=== PATIENT | male | born 1935 | race Caucasian/White ===

== ENCOUNTER 2022-04-09 08:55 | Inpatient (IN) | payer MEDICARE, MEDICAID ==
[2022-04-09] VITALS (40 sets, daily range): BP systolic 59–134; BP diastolic 43–83
[~2022-04-09] VITALS: Ht 165.1 cm; Wt 53.1 kg
[~2022-04-09 08:55] MED LIST: BACI500P7; CEPH-569; EZET10TA13; GLYB5TAB4; METF1000; SIMV40TA2; SITA100T11; TERA5CAP4
[2022-04-09] MEDS ORDERED: SODIUM CHLORIDE 0.9% 1000ML BAG (SEPSIS BOLUS) IV ONE ×2 (09:30)
[2022-04-09] MEDS ORDERED: PIPERACILLIN/TAZ 3.375G PREMIX 50 ML IV ONE ×2 (09:30)
[2022-04-09] MEDS ORDERED: MORPHINE SULFATE 2 MG/ML CPJ (NOT FOR IM USE) IV ONE (09:30)
[2022-04-09] MEDS ORDERED: ONDANSETRON HCL 4MG/2ML INJ IV ONE (09:30)
[2022-04-09] MEDS ORDERED: VANCOMYCIN 1G PREMIX 200 ML IV ONE ×2 (09:30)
[2022-04-09 10:04] LABS: EOSINOPHILS % 0.5 % (0.0-5.0); HEMATOCRIT. 38.8 % (42.0-52.0); HEMOGLOBIN. 11.9 g/dL (14.0-18.0); LYMPHOCYTES % 8.2 % (20.0-50.0); MEAN CORPUSCULAR HEMOGLOBIN 26.4 pg (28.0-32.0); MEAN CORPUSCULAR VOLUME 86.5 fL (80.0-94.0); MEAN PLATELET VOLUME 8.7 fl (7.4-10.4); MONOCYTES % 2.4 % (2.0-8.0); NEUTROPHILS % 88.9 % (40.0-76.0); PLATELET 230 x1000/uL (130-400); RED BLOOD CELL COUNT 4.49 mill/uL (4.7-6.1); RED CELL DISTRIBUTION WIDTH 17.4 % (11.6-14.6)
[2022-04-09 10:10] LABS: CHLORIDE 109 mEq/L (98-107)
[2022-04-09 10:11] LABS: INR 1.2; PARTIAL THROMBOPLASTIN TIME < 21.0 sec (23.4-31.0)
[2022-04-09] MEDS ORDERED: NOREPINEPHRINE 8 MG in DEXT 5% WATER 242 ML IV STA (10:47)
[2022-04-09] MEDS ORDERED: KCL 20MEQ/100ML PREMIX 100 ML IV ONE (11:00)
[2022-04-09] MEDS ORDERED: NOREPINEPHRINE 8MG/250ML PMX 250 ML IV ONE (11:00)
[2022-04-09] MEDS ORDERED: NOREPINEPHRINE 8MG/250ML PMX 250 ML IV NR ×2 (12:15)
[2022-04-09] MEDS ORDERED: ETOMIDATE 2MG/ML 10ML VIAL IV ONE (12:45)
[2022-04-09] MEDS ORDERED: MIDAZOLAM HCL 2 MG/2 ML VIAL ONE (12:45)
[2022-04-09] MEDS ORDERED: SUCCINYLCHOLINE CHLORIDE 200MG/10ML IV ONE (12:46)
[2022-04-09] MEDS ORDERED: ROCURONIUM BROMIDE 10MG/ML VIAL 5ML IV ONE (12:58)
[2022-04-09] MEDS ORDERED: EPHEDRINE SULFATE 50MG/ML VIAL ONE (13:20)
[2022-04-09] MEDS ORDERED: CEFAZOLIN SODIUM 1000MG/VIAL ONE (13:20)
[2022-04-09] MEDS ORDERED: LIDOCAINE HCL 1% 20ML VIAL (Pyxis) INJ ONE (13:20)
[2022-04-09] MEDS ORDERED: ALBUMIN HUMAN 12.5G/250ML (5%) IV ONE ×2 (13:46→22:12)
[2022-04-09] MEDS ORDERED: PHENYLEPHRINE HCL 10 MG/ML 1ML (IV VIAL) IV ONE ×4 (13:50→15:56)
[2022-04-09] MEDS ORDERED: KCL 10MEQ/50ML PREMIX 50 ML IV NR ×2 (14:00→20:00)
[2022-04-09] MEDS ORDERED: METHYLENE BLUE 50 MG/10 ML AMP IV ONE (14:08)
[2022-04-09] MEDS ORDERED: ACETAMINOPHEN 650MG/20.3ML UDC NG PRN (14:45)
[2022-04-09] MEDS ORDERED: BLOOD SUGAR DIAGNOSTIC STRIP TEST SCH (16:30)
[2022-04-09] MEDS ORDERED: NOREPINEPHRINE 32 MG in DEXT 5% WATER 218 ML IV PRN (17:00)
[2022-04-09 17:35] LABS: BG BASE EXCESS -10.4 mmol/L (-2.0-2.0); BG CARBOXYHEMOGLOBIN 0.4 % (0.5-1.5); BG DEOXYHEMOGLOBIN 0.6 % (0.0-5.0); BG FRACTION INSPIRED OXYGEN 100; BG HCO3 ACT 16.8 mmol/L (22.0-26.0); BG METHEMOGLOBIN 0.2 % (0.0-1.5); BG OXYGEN SATURATION 99.4 % (92.0-98.5); BG OXYHEMOGLOBIN 98.8 % (94.0-97.0); BG PCO2 42.2 mmHg (35.0-45.0); BG PH 7.218 (7.350-7.450); BG PO2 414.5 mmHg (75.0-100.0); BG SAMPLE SITE LH; BG TOTAL HEMOGLOBIN 11.6 g/dL (12.0-18.0); BG TOTAL RESPIRATORY RATE 14 b/min; BG VENT MODE VENT - AC
[2022-04-09] MEDS: NOREPINEPHRINE 32 MG in DEXT 5% WATER 218 ML IV PRN (18:01)
[2022-04-09] MEDS: INSULIN LISPRO 100 UNITS/ML SUBCUT SCH ×2 (18:13→21:45)
[2022-04-09] MEDS ORDERED: FENTANYL CITRATE/PF 50MCG/ML 2ML VIAL IV PRN (18:15)
[2022-04-09] MEDS ORDERED: DEXT 5%/0.45% NACL 1000ML 1,000 ML IV SCH (18:30)
[2022-04-09] MEDS ORDERED: SODIUM CHLORIDE 0.9% 1,000 ML IV NR (18:30)
[2022-04-09] MEDS ORDERED: FLUCONAZOLE 200 MG/100ML BAG 200 MG in BAG 1 EACH IV SCH (18:45)
[2022-04-09] MEDS: PHENYLEPHRINE 100 MG in DEXT 5% WATER 240 ML IV PRN (20:03)
[2022-04-09] MEDS: DEXT 5%/0.45% NACL KCL 20MEQ/L 1,000 ML IV SCH (20:09)
[2022-04-09] MEDS: IPRATROPIUM/ALBUTEROL 0.5-3(2.5)MG/3ML NEB HHN SCH (20:38)
[2022-04-09] MEDS: FLUCONAZOLE 200 MG/100ML BAG 100 ML IV SCH (20:44)
[2022-04-09 21:14] LABS: BASOPHILS % 0.3 % (0.0-2.0); EOSINOPHILS % 0.3 % (0.0-5.0); HEMATOCRIT. 38.7 % (42.0-52.0); HEMOGLOBIN. 12.1 g/dL (14.0-18.0); LYMPHOCYTES % 9.5 % (20.0-50.0); MEAN CORPUSCULAR HEMOGLOBIN 27.4 pg (28.0-32.0); MEAN CORPUSCULAR VOLUME 87.8 fL (80.0-94.0); MEAN PLATELET VOLUME 8.5 fl (7.4-10.4); MONOCYTES % 6.7 % (2.0-8.0); NEUTROPHILS % 83.2 % (40.0-76.0); PLATELET 132 x1000/uL (130-400); RED BLOOD CELL COUNT 4.41 mill/uL (4.7-6.1); RED CELL DISTRIBUTION WIDTH 16.5 % (11.6-14.6)
[2022-04-09] MEDS: FAMOTIDINE 20MG/2ML VIAL IV SCH (21:44)
[2022-04-09] MEDS: PIPERACILLIN/TAZOBACTAM 3.375 G in DEXTROSE 5% WATER 50 ML IV SCH (21:44)
[2022-04-09] MEDS ORDERED: SODIUM CHLORIDE 0.9% 500 ML IV ONE (22:00)
[2022-04-10] VITALS (105 sets, daily range): BP systolic 41–190; BP diastolic 13–131
[2022-04-10] MEDS: BLOOD SUGAR DIAGNOSTIC STRIP TEST SCH ×5 (00:07→23:45)
[2022-04-10 01:35] LABS: BG BASE EXCESS -11.5 mmol/L (-2.0-2.0); BG CARBOXYHEMOGLOBIN 0.6 % (0.5-1.5); BG DEOXYHEMOGLOBIN 1.3 % (0.0-5.0); BG FRACTION INSPIRED OXYGEN 40; BG HCO3 ACT 15.1 mmol/L (22.0-26.0); BG METHEMOGLOBIN 0.1 % (0.0-1.5); BG OXYGEN SATURATION 98.7 % (92.0-98.5); BG PCO2 36.4 mmHg (35.0-45.0); BG PH 7.236 (7.350-7.450); BG SAMPLE SITE RIGHT RADIAL; BG TOTAL HEMOGLOBIN 11.4 g/dL (12.0-18.0); BG VENT MODE VENT - AC
[2022-04-10] MEDS: NOREPINEPHRINE 32 MG in DEXT 5% WATER 218 ML IV PRN ×4 (01:54→23:13)
[2022-04-10] MEDS: IPRATROPIUM/ALBUTEROL 0.5-3(2.5)MG/3ML NEB HHN SCH ×4 (02:08→19:58)
[2022-04-10] MEDS: PROPOFOL 10MG/ML 100ML 100 ML IV PRN (03:34)
[2022-04-10] MEDS: VASOPRESSIN 20 UNIT in SODIUM CHLORIDE 0.9% 99 ML IV PRN ×2 (04:01→12:47)
[2022-04-10] MEDS: DEXT 5%/0.45% NACL KCL 20MEQ/L 1,000 ML IV SCH ×3 (04:09→21:12)
[2022-04-10 05:21] LABS: BASOPHILS % 0.2 % (0.0-2.0); EOSINOPHILS % 0.8 % (0.0-5.0); HEMATOCRIT. 33.3 % (42.0-52.0); HEMOGLOBIN. 10.6 g/dL (14.0-18.0); LYMPHOCYTES % 10.7 % (20.0-50.0); MEAN CORPUSCULAR VOLUME 88.3 fL (80.0-94.0); MONOCYTES % 4.7 % (2.0-8.0); NEUTROPHILS % 83.6 % (40.0-76.0); PLATELET 104 x1000/uL (130-400); RED BLOOD CELL COUNT 3.77 mill/uL (4.7-6.1)
[2022-04-10] MEDS: PIPERACILLIN/TAZOBACTAM 3.375 G in DEXTROSE 5% WATER 50 ML IV SCH ×3 (05:50→21:12)
[2022-04-10] MEDS: INSULIN LISPRO 100 UNITS/ML SUBCUT SCH ×4 (05:54→23:50)
[2022-04-10] MEDS: PHENYLEPHRINE 100 MG in DEXT 5% WATER 240 ML IV PRN ×2 (07:06→17:34)
[2022-04-10] MEDS ORDERED: LIDOCAINE HCL 1% 10 MG/ML 10ML VIAL ONE (07:51)
[2022-04-10] MEDS ORDERED: FENTANYL CITRATE/PF 2,500 MCG in SODIUM CHLORIDE 0.9% 250 ML IV PRN (20:45)
[2022-04-10] MEDS: FLUCONAZOLE 200 MG/100ML BAG 100 ML IV SCH (21:12)
[2022-04-10] MEDS: FAMOTIDINE 20MG/2ML VIAL IV SCH (21:12)
[2022-04-10] MEDS: FENTANYL CITRATE/PF 2,500 MCG in SODIUM CHLORIDE 0.9% 200 ML IV PRN (21:32)
[2022-04-11] VITALS (81 sets, daily range): BP systolic 51–143; BP diastolic 29–71
[2022-04-11] MEDS: IPRATROPIUM/ALBUTEROL 0.5-3(2.5)MG/3ML NEB HHN SCH ×4 (02:09→19:57)
[2022-04-11] MEDS: PHENYLEPHRINE 100 MG in DEXT 5% WATER 240 ML IV PRN ×3 (02:41→21:42)
[2022-04-11] MEDS: DEXT 5%/0.45% NACL KCL 20MEQ/L 1,000 ML IV SCH ×3 (04:00→20:00)
[2022-04-11] MEDS: BLOOD SUGAR DIAGNOSTIC STRIP TEST SCH ×3 (06:22→17:54)
[2022-04-11] MEDS: PIPERACILLIN/TAZOBACTAM 3.375 G in DEXTROSE 5% WATER 50 ML IV SCH ×3 (06:27→21:42)
[2022-04-11] MEDS: INSULIN LISPRO 100 UNITS/ML SUBCUT SCH ×3 (06:29→18:07)
[2022-04-11] MEDS: PROPOFOL 10MG/ML 100ML 100 ML IV PRN (06:58)
[2022-04-11] MEDS ORDERED: PROPOFOL 10MG/ML 100ML 100 ML IV PRN (07:00)
[2022-04-11] MEDS: NOREPINEPHRINE 32 MG in DEXT 5% WATER 218 ML IV PRN ×2 (12:13→21:41)
[2022-04-11 13:00] LABS: HEMATOCRIT. 30.5 % (42.0-52.0); HEMOGLOBIN. 9.7 g/dL (14.0-18.0); MEAN CORPUSCULAR HEMOGLOBIN 28.1 pg (28.0-32.0); MEAN CORPUSCULAR VOLUME 88.6 fL (80.0-94.0); MEAN PLATELET VOLUME 10.2 fl (7.4-10.4); RED BLOOD CELL COUNT 3.44 mill/uL (4.7-6.1); RED CELL DISTRIBUTION WIDTH 17.5 % (11.6-14.6)
[2022-04-11 13:04] LABS: BG BASE EXCESS -12.9 mmol/L (-2.0-2.0); BG CARBOXYHEMOGLOBIN 0.3 % (0.5-1.5); BG DEOXYHEMOGLOBIN 1.7 % (0.0-5.0); BG FRACTION INSPIRED OXYGEN 30; BG METHEMOGLOBIN 0.3 % (0.0-1.5); BG OXYGEN SATURATION 98.3 % (92.0-98.5); BG OXYHEMOGLOBIN 97.7 % (94.0-97.0); BG PCO2 30.2 mmHg (35.0-45.0); BG PH 7.253 (7.350-7.450); BG PO2 144.1 mmHg (75.0-100.0); BG SAMPLE SITE LEFT BRACHIAL; BG TOTAL HEMOGLOBIN 10.3 g/dL (12.0-18.0); BG VENT MODE VENT - AC
[2022-04-11 13:11] LABS: PLATELET 46 x1000/uL (130-400)
[2022-04-11 13:29] LABS: PLATELET ESTIMATE MARKEDLY DECREASED
[2022-04-11 13:40] LABS: CHLORIDE 108 mEq/L (98-107); PHOSPHORUS 3.8 mg/dL (2.5-4.9)
[2022-04-11] MEDS ORDERED: FUROSEMIDE 20MG/2ML VIAL IVP NR (20:00)
[2022-04-11] MEDS: FAMOTIDINE 20MG/2ML VIAL IV SCH (21:40)
[2022-04-11] MEDS: FLUCONAZOLE 200 MG/100ML BAG 100 ML IV SCH (21:42)
[2022-04-12] VITALS (94 sets, daily range): BP systolic 69–158; BP diastolic 37–86
[2022-04-12] MEDS: IPRATROPIUM/ALBUTEROL 0.5-3(2.5)MG/3ML NEB HHN SCH ×4 (00:17→20:06)
[2022-04-12] MEDS: FENTANYL CITRATE/PF 2,500 MCG in SODIUM CHLORIDE 0.9% 200 ML IV PRN (00:52)
[2022-04-12] MEDS: BLOOD SUGAR DIAGNOSTIC STRIP TEST SCH ×5 (00:58→23:57)
[2022-04-12] MEDS: INSULIN LISPRO 100 UNITS/ML SUBCUT SCH ×5 (01:06→23:56)
[2022-04-12] MEDS: DEXT 5%/0.45% NACL KCL 20MEQ/L 1,000 ML IV SCH (04:31)
[2022-04-12] MEDS: PIPERACILLIN/TAZOBACTAM 3.375 G in DEXTROSE 5% WATER 50 ML IV SCH ×2 (05:40→14:11)
[2022-04-12] MEDS: NOREPINEPHRINE 32 MG in DEXT 5% WATER 218 ML IV PRN ×2 (09:00→20:05)
[2022-04-12 10:29] LABS: BG CARBOXYHEMOGLOBIN 0.3 % (0.5-1.5); BG DEOXYHEMOGLOBIN 16.5 % (0.0-5.0); BG HCO3 ACT 14.7 mmol/L (22.0-26.0); BG METHEMOGLOBIN 0.6 % (0.0-1.5); BG OXYGEN SATURATION 83.4 % (92.0-98.5); BG OXYHEMOGLOBIN 82.6 % (94.0-97.0); BG PCO2 36.7 mmHg (35.0-45.0); BG PH 7.221 (7.350-7.450); BG PO2 48.8 mmHg (75.0-100.0); BG SAMPLE SITE RIGHT RADIAL; BG TOTAL HEMOGLOBIN 9.6 g/dL (12.0-18.0); BG VENT MODE VENT - AC
[2022-04-12 11:17] LABS: BG CARBOXYHEMOGLOBIN 0.5 % (0.5-1.5); BG DEOXYHEMOGLOBIN 1.4 % (0.0-5.0); BG FRACTION INSPIRED OXYGEN 30; BG HCO3 ACT 13.9 mmol/L (22.0-26.0); BG METHEMOGLOBIN 0.2 % (0.0-1.5); BG OXYGEN SATURATION 98.6 % (92.0-98.5); BG OXYHEMOGLOBIN 97.9 % (94.0-97.0); BG PCO2 31.4 mmHg (35.0-45.0); BG PH 7.263 (7.350-7.450); BG PO2 119.1 mmHg (75.0-100.0); BG SAMPLE SITE LEFT RADIAL; BG TOTAL HEMOGLOBIN 9.5 g/dL (12.0-18.0); BG VENT MODE VENT - AC
[2022-04-12] MEDS: PHENYLEPHRINE 100 MG in DEXT 5% WATER 240 ML IV PRN ×2 (11:29→20:05)
[2022-04-12] MEDS: SODIUM BICARBONATE 150 MEQ in DEXTROSE 5% WATER 1,000 ML IV SCH (13:20)
[2022-04-12 14:26] LABS: CHLORIDE 106 mEq/L (98-107); HEMATOCRIT. 28.3 % (42.0-52.0); HEMOGLOBIN. 8.8 g/dL (14.0-18.0); MEAN CORPUSCULAR HEMOGLOBIN 26.9 pg (28.0-32.0); MEAN CORPUSCULAR VOLUME 86.2 fL (80.0-94.0); MEAN PLATELET VOLUME 10.2 fl (7.4-10.4); RED BLOOD CELL COUNT 3.28 mill/uL (4.7-6.1); RED CELL DISTRIBUTION WIDTH 17.3 % (11.6-14.6)
[2022-04-12 15:20] LABS: PLATELET ESTIMATE MARKEDLY DECREASED
[2022-04-12 15:21] LABS: PLATELET 27 x1000/uL (130-400)
[2022-04-12] MEDS: FAMOTIDINE 20MG/2ML VIAL IV SCH (20:03)
[2022-04-12] MEDS: FLUCONAZOLE 200 MG/100ML BAG 100 ML IV SCH (20:03)
[2022-04-12] MEDS: MEROPENEM 500 MG in SODIUM CHLORIDE 0.9% 50 ML IV SCH (20:04)
[2022-04-13] VITALS (99 sets, daily range): BP systolic 62–154; BP diastolic 23–93
[2022-04-13] MEDS: IPRATROPIUM/ALBUTEROL 0.5-3(2.5)MG/3ML NEB HHN SCH ×4 (01:47→19:54)
[2022-04-13] MEDS: SODIUM BICARBONATE 150 MEQ in DEXTROSE 5% WATER 1,000 ML IV SCH ×2 (05:03→16:00)
[2022-04-13] MEDS: BLOOD SUGAR DIAGNOSTIC STRIP TEST SCH ×4 (05:03→23:49)
[2022-04-13] MEDS: INSULIN LISPRO 100 UNITS/ML SUBCUT SCH ×4 (05:05→23:49)
[2022-04-13 06:04] LABS: HEMATOCRIT. 23.2 % (42.0-52.0); HEMOGLOBIN. 7.6 g/dL (14.0-18.0); MEAN CORPUSCULAR HEMOGLOBIN 27.4 pg (28.0-32.0); MEAN CORPUSCULAR VOLUME 83.4 fL (80.0-94.0); MEAN PLATELET VOLUME 8.9 fl (7.4-10.4); RED BLOOD CELL COUNT 2.78 mill/uL (4.7-6.1); RED CELL DISTRIBUTION WIDTH 16.9 % (11.6-14.6)
[2022-04-13 06:16] LABS: PLATELET 42 x1000/uL (130-400)
[2022-04-13 07:46] LABS: NUCLEATED RED BLOOD CELLS 4 /100 WBC
[2022-04-13 07:47] LABS: PLATELET ESTIMATE MARKEDLY DECREASED
[2022-04-13] MEDS: PHENYLEPHRINE 100 MG in DEXT 5% WATER 240 ML IV PRN ×2 (09:24→19:42)
[2022-04-13] MEDS: MEROPENEM 500 MG in SODIUM CHLORIDE 0.9% 50 ML IV SCH ×2 (09:58→21:22)
[2022-04-13 11:09] LABS: CLARITY URINE TURBID (CLEAR); COLOR URINE DARK YELLOW (YELLOW); KETONES URINE NEGATIVE (NEGATIVE); LEUKOCYTE ESTERASE URINE 2+ (NEGATIVE); NITRITE URINE NEGATIVE (NEGATIVE); OCCULT BLOOD URINE 3+ (NEGATIVE); PROTEIN URINE 1+ (NEGATIVE); SPECIFIC GRAVITY URINE 1.009 (1.005-1.030); UROBILINOGEN URINE 0.2 E.U./dL (0.2-1.0)
[2022-04-13 11:59] LABS: BG BASE EXCESS -7.4 mmol/L (-2.0-2.0); BG CARBOXYHEMOGLOBIN 1.1 % (0.5-1.5); BG DEOXYHEMOGLOBIN 1.3 % (0.0-5.0); BG FRACTION INSPIRED OXYGEN 30; BG HCO3 ACT 16.3 mmol/L (22.0-26.0); BG METHEMOGLOBIN 0.1 % (0.0-1.5); BG OXYGEN SATURATION 98.7 % (92.0-98.5); BG OXYHEMOGLOBIN 97.5 % (94.0-97.0); BG PCO2 26.7 mmHg (35.0-45.0); BG PH 7.403 (7.350-7.450); BG PO2 116.7 mmHg (75.0-100.0); BG SAMPLE SITE RIGHT RADIAL; BG TOTAL HEMOGLOBIN 8.6 g/dL (12.0-18.0); BG VENT MODE VENT - AC
[2022-04-13] MEDS: PROPOFOL 10MG/ML 100ML 100 ML IV PRN (16:02)
[2022-04-13] MEDS: FAMOTIDINE 20MG/2ML VIAL IV SCH (20:46)
[2022-04-13] MEDS: FLUCONAZOLE 200 MG/100ML BAG 100 ML IV SCH (20:46)
[2022-04-14] VITALS (95 sets, daily range): BP systolic 77–136; BP diastolic 32–92
[2022-04-14] MEDS: SODIUM BICARBONATE 150 MEQ in DEXTROSE 5% WATER 1,000 ML IV SCH ×3 (00:54→20:55)
[2022-04-14] MEDS: IPRATROPIUM/ALBUTEROL 0.5-3(2.5)MG/3ML NEB HHN SCH ×4 (02:02→20:25)
[2022-04-14 04:38] LABS: HEMATOCRIT. 23.6 % (42.0-52.0); HEMOGLOBIN. 7.9 g/dL (14.0-18.0); MEAN CORPUSCULAR HEMOGLOBIN 27.2 pg (28.0-32.0); MEAN CORPUSCULAR VOLUME 81.2 fL (80.0-94.0); MEAN PLATELET VOLUME 9.4 fl (7.4-10.4); RED BLOOD CELL COUNT 2.91 mill/uL (4.7-6.1); RED CELL DISTRIBUTION WIDTH 17.1 % (11.6-14.6)
[2022-04-14 04:56] LABS: PLATELET 35 x1000/uL (130-400)
[2022-04-14] MEDS: BLOOD SUGAR DIAGNOSTIC STRIP TEST SCH ×3 (06:00→17:02)
[2022-04-14] MEDS: INSULIN LISPRO 100 UNITS/ML SUBCUT SCH ×3 (06:00→17:02)
[2022-04-14] MEDS: PHENYLEPHRINE 100 MG in DEXT 5% WATER 240 ML IV PRN ×2 (06:26→13:31)
[2022-04-14] MEDS: MEROPENEM 500 MG in SODIUM CHLORIDE 0.9% 50 ML IV SCH ×2 (08:29→20:54)
[2022-04-14] MEDS: FENTANYL CITRATE/PF 2,500 MCG in SODIUM CHLORIDE 0.9% 200 ML IV PRN (08:31)
[2022-04-14 09:16] LABS: BG BASE EXCESS -0.5 mmol/L (-2.0-2.0); BG CARBOXYHEMOGLOBIN 0.8 % (0.5-1.5); BG DEOXYHEMOGLOBIN 1.7 % (0.0-5.0); BG FRACTION INSPIRED OXYGEN 30; BG HCO3 ACT 22.9 mmol/L (22.0-26.0); BG METHEMOGLOBIN 0.1 % (0.0-1.5); BG OXYGEN SATURATION 98.3 % (92.0-98.5); BG OXYHEMOGLOBIN 97.4 % (94.0-97.0); BG PCO2 31.9 mmHg (35.0-45.0); BG PH 7.473 (7.350-7.450); BG PO2 113.4 mmHg (75.0-100.0); BG SAMPLE SITE RIGHT RADIAL; BG TOTAL HEMOGLOBIN 8.2 g/dL (12.0-18.0); BG TOTAL RESPIRATORY RATE 18 b/min; BG VENT MODE VENT - AC
[2022-04-14] MEDS ORDERED: FUROSEMIDE 40MG/4ML VIAL IVP NR (13:00)
[2022-04-14] MEDS: PROPOFOL 10MG/ML 100ML 100 ML IV PRN (13:30)
[2022-04-14] MEDS: NOREPINEPHRINE 32 MG in DEXT 5% WATER 218 ML IV PRN (15:34)
[2022-04-14] MEDS ORDERED: PROPOFOL 10MG/ML 100ML 100 ML IV PRN (16:15)
[2022-04-14 18:07] LABS: PLATELET ESTIMATE MARKEDLY DECREASED
[2022-04-14] MEDS: FLUCONAZOLE 200 MG/100ML BAG 100 ML IV SCH (20:20)
[2022-04-14] MEDS: FAMOTIDINE 20MG/2ML VIAL IV SCH (20:54)
[2022-04-15] VITALS (95 sets, daily range): BP systolic 53–158; BP diastolic 31–92
[2022-04-15] MEDS: PHENYLEPHRINE 100 MG in DEXT 5% WATER 240 ML IV PRN (00:15)
[2022-04-15] MEDS: BLOOD SUGAR DIAGNOSTIC STRIP TEST SCH ×4 (00:23→17:39)
[2022-04-15] MEDS: INSULIN LISPRO 100 UNITS/ML SUBCUT SCH ×4 (00:30→17:39)
[2022-04-15] MEDS: IPRATROPIUM/ALBUTEROL 0.5-3(2.5)MG/3ML NEB HHN SCH ×4 (02:09→14:19)
[2022-04-15] MEDS: SODIUM BICARBONATE 150 MEQ in DEXTROSE 5% WATER 1,000 ML IV SCH (06:30)
[2022-04-15] MEDS: MEROPENEM 500 MG in SODIUM CHLORIDE 0.9% 50 ML IV SCH ×2 (08:50→21:31)
[2022-04-15] MEDS: FUROSEMIDE 100MG/10ML VIAL IVP SCH ×2 (08:50→16:40)
[2022-04-15 09:08] LABS: BG BASE EXCESS 2.8 mmol/L (-2.0-2.0); BG CARBOXYHEMOGLOBIN 0.3 % (0.5-1.5); BG DEOXYHEMOGLOBIN 2.2 % (0.0-5.0); BG FRACTION INSPIRED OXYGEN 30; BG HCO3 ACT 26.3 mmol/L (22.0-26.0); BG METHEMOGLOBIN 0.3 % (0.0-1.5); BG OXYGEN SATURATION 97.8 % (92.0-98.5); BG OXYHEMOGLOBIN 97.2 % (94.0-97.0); BG PCO2 35.5 mmHg (35.0-45.0); BG PH 7.487 (7.350-7.450); BG PO2 110.3 mmHg (75.0-100.0); BG SAMPLE SITE LEFT RADIAL; BG TOTAL HEMOGLOBIN 8.4 g/dL (12.0-18.0); BG VENT MODE VENT - AC
[2022-04-15 10:09] LABS: HEMATOCRIT. 24.8 % (42.0-52.0); HEMOGLOBIN. 8.4 g/dL (14.0-18.0); MEAN CORPUSCULAR HEMOGLOBIN 27.5 pg (28.0-32.0); MEAN CORPUSCULAR VOLUME 81.6 fL (80.0-94.0); MEAN PLATELET VOLUME 11.2 fl (7.4-10.4); RED BLOOD CELL COUNT 3.04 mill/uL (4.7-6.1); RED CELL DISTRIBUTION WIDTH 16.6 % (11.6-14.6)
[2022-04-15 10:12] LABS: PLATELET 45 x1000/uL (130-400)
[2022-04-15 10:13] LABS: CHLORIDE 89 mEq/L (98-107)
[2022-04-15 10:24] LABS: PHOSPHORUS 4.6 mg/dL (2.5-4.9)
[2022-04-15 13:00] LABS: PLATELET ESTIMATE MARKEDLY DECREASED
[2022-04-15 14:18] LABS: BG BASE EXCESS 1.8 mmol/L (-2.0-2.0); BG CARBOXYHEMOGLOBIN 0.5 % (0.5-1.5); BG DEOXYHEMOGLOBIN 4.7 % (0.0-5.0); BG FRACTION INSPIRED OXYGEN 30; BG HCO3 ACT 26.4 mmol/L (22.0-26.0); BG METHEMOGLOBIN 0.3 % (0.0-1.5); BG OXYGEN SATURATION 95.3 % (92.0-98.5); BG OXYHEMOGLOBIN 94.5 % (94.0-97.0); BG PCO2 41.8 mmHg (35.0-45.0); BG PH 7.419 (7.350-7.450); BG PO2 79.2 mmHg (75.0-100.0); BG SAMPLE SITE LEFT RADIAL; BG TOTAL HEMOGLOBIN 9.5 g/dL (12.0-18.0); BG TOTAL RESPIRATORY RATE 50 b/min; BG VENT MODE VENT - CPAP
[2022-04-15] MEDS ORDERED: MORPHINE SULFATE 2 MG/ML CPJ (NOT FOR IM USE) IV PRN (14:30)
[2022-04-15] MEDS ORDERED: NALOXONE HCL 0.4MG/ML VIAL IV PRN (14:45)
[2022-04-15] MEDS ORDERED: PROPOFOL 10MG/ML 100ML 100 ML IV PRN (17:45)
[2022-04-15] MEDS: FAMOTIDINE 20MG/2ML VIAL IV SCH (20:54)
[2022-04-15] MEDS: TOTAL PARENTERAL NUTRITION 1,800 ML IV SCH (20:56)
[2022-04-15] MEDS ORDERED: FAT EMULSIONS 500 ML IV SCH (21:00)
[2022-04-16] VITALS (96 sets, daily range): BP systolic 70–160; BP diastolic 40–76
[2022-04-16] MEDS: BLOOD SUGAR DIAGNOSTIC STRIP TEST SCH ×4 (00:25→18:00)
[2022-04-16] MEDS: INSULIN LISPRO 100 UNITS/ML SUBCUT SCH ×4 (00:25→17:55)
[2022-04-16] MEDS: IPRATROPIUM/ALBUTEROL 0.5-3(2.5)MG/3ML NEB HHN SCH ×4 (01:59→20:09)
[2022-04-16] MEDS ORDERED: FENTANYL 2500MCG/250ML PMX 250 ML IV ONE (02:30)
[2022-04-16] MEDS: NOREPINEPHRINE 32 MG in DEXT 5% WATER 218 ML IV PRN ×2 (02:52→21:49)
[2022-04-16] MEDS: FENTANYL CITRATE 2,500 MCG in SODIUM CHLORIDE 0.9% 200 ML IV PRN (05:30)
[2022-04-16] MEDS: FUROSEMIDE 100MG/10ML VIAL IVP SCH ×2 (09:27→17:54)
[2022-04-16] MEDS: MEROPENEM 500 MG in SODIUM CHLORIDE 0.9% 50 ML IV SCH ×2 (09:27→21:43)
[2022-04-16 10:47] LABS: HEMATOCRIT. 23.6 % (42.0-52.0); HEMOGLOBIN. 7.9 g/dL (14.0-18.0); MEAN CORPUSCULAR HEMOGLOBIN 27.3 pg (28.0-32.0); MEAN CORPUSCULAR VOLUME 82.1 fL (80.0-94.0); MEAN PLATELET VOLUME 10.6 fl (7.4-10.4); PLATELET 67 x1000/uL (130-400); RED BLOOD CELL COUNT 2.87 mill/uL (4.7-6.1); RED CELL DISTRIBUTION WIDTH 16.7 % (11.6-14.6)
[2022-04-16 11:05] LABS: PLATELET ESTIMATE DECREASED
[2022-04-16] MEDS ORDERED: INSULIN GLARGINE 100 UNITS/ML SUBCUT NR (11:15)
[2022-04-16 13:03] LABS: BG BASE EXCESS 4.3 mmol/L (-2.0-2.0); BG CARBOXYHEMOGLOBIN 0.3 % (0.5-1.5); BG DEOXYHEMOGLOBIN 2.8 % (0.0-5.0); BG FRACTION INSPIRED OXYGEN 30; BG HCO3 ACT 27.7 mmol/L (22.0-26.0); BG METHEMOGLOBIN 0.3 % (0.0-1.5); BG OXYGEN SATURATION 97.2 % (92.0-98.5); BG OXYHEMOGLOBIN 96.6 % (94.0-97.0); BG PCO2 36.9 mmHg (35.0-45.0); BG PH 7.494 (7.350-7.450); BG PO2 92.5 mmHg (75.0-100.0); BG SAMPLE SITE LEFT RADIAL; BG TOTAL HEMOGLOBIN 9.2 g/dL (12.0-18.0); BG TOTAL RESPIRATORY RATE 20 b/min; BG VENT MODE VENT - CPAP
[2022-04-16] MEDS ORDERED: PROPOFOL 10MG/ML 100ML 100 ML IV PRN (19:15)
[2022-04-16] MEDS: FAMOTIDINE 20MG/2ML VIAL IV SCH (21:44)
[2022-04-16] MEDS: TOTAL PARENTERAL NUTRITION 1,800 ML IV SCH (21:44)
[2022-04-16 22:38] LABS: HEPATITIS B SURFACE ANTIGEN NEGATIVE
[2022-04-17] VITALS (100 sets, daily range): BP systolic 62–165; BP diastolic 39–104
[2022-04-17] MEDS: INSULIN LISPRO 100 UNITS/ML SUBCUT SCH ×4 (00:11→17:17)
[2022-04-17] MEDS: BLOOD SUGAR DIAGNOSTIC STRIP TEST SCH ×4 (00:11→17:14)
[2022-04-17 04:49] LABS: HEMATOCRIT. 23.6 % (42.0-52.0); MEAN CORPUSCULAR HEMOGLOBIN 27.6 pg (28.0-32.0); MEAN CORPUSCULAR VOLUME 81.4 fL (80.0-94.0); MEAN PLATELET VOLUME 10.1 fl (7.4-10.4); PLATELET 61 x1000/uL (130-400); RED BLOOD CELL COUNT 2.89 mill/uL (4.7-6.1); RED CELL DISTRIBUTION WIDTH 16.3 % (11.6-14.6)
[2022-04-17 05:03] LABS: PHOSPHORUS 4.1 mg/dL (2.5-4.9)
[2022-04-17] MEDS: FUROSEMIDE 100MG/10ML VIAL IVP SCH ×3 (09:05→16:46)
[2022-04-17] MEDS: MEROPENEM 500 MG in SODIUM CHLORIDE 0.9% 50 ML IV SCH ×2 (09:05→20:55)
[2022-04-17] MEDS: IPRATROPIUM/ALBUTEROL 0.5-3(2.5)MG/3ML NEB HHN SCH ×3 (09:16→20:16)
[2022-04-17 13:46] LABS: PLATELET ESTIMATE MARKEDLY DECREASED
[2022-04-17] MEDS: FENTANYL CITRATE 2,500 MCG in SODIUM CHLORIDE 0.9% 200 ML IV PRN (14:43)
[2022-04-17] MEDS: NOREPINEPHRINE 32 MG in DEXT 5% WATER 218 ML IV PRN (14:43)
[2022-04-17] MEDS: TOTAL PARENTERAL NUTRITION 1,800 ML IV SCH (20:54)
[2022-04-17] MEDS: FAMOTIDINE 20MG/2ML VIAL IV SCH (20:55)
[2022-04-18] VITALS (77 sets, daily range): BP systolic 84–143; BP diastolic 43–102
[2022-04-18] MEDS: BLOOD SUGAR DIAGNOSTIC STRIP TEST SCH ×4 (00:20→17:06)
[2022-04-18] MEDS: INSULIN LISPRO 100 UNITS/ML SUBCUT SCH ×4 (00:20→17:09)
[2022-04-18] MEDS: IPRATROPIUM/ALBUTEROL 0.5-3(2.5)MG/3ML NEB HHN SCH ×4 (02:36→20:34)
[2022-04-18] MEDS: FUROSEMIDE 100MG/10ML VIAL IVP SCH ×3 (08:41→17:08)
[2022-04-18 15:46] LABS: BG BASE EXCESS 2.4 mmol/L (-2.0-2.0); BG CARBOXYHEMOGLOBIN 0.1 % (0.5-1.5); BG DEOXYHEMOGLOBIN 3.7 % (0.0-5.0); BG FRACTION INSPIRED OXYGEN 30; BG HCO3 ACT 26.7 mmol/L (22.0-26.0); BG METHEMOGLOBIN 0.6 % (0.0-1.5); BG OXYGEN SATURATION 96.3 % (92.0-98.5); BG OXYHEMOGLOBIN 95.6 % (94.0-97.0); BG PCO2 40.1 mmHg (35.0-45.0); BG PH 7.442 (7.350-7.450); BG PO2 84.8 mmHg (75.0-100.0); BG SAMPLE SITE LEFT RADIAL; BG TOTAL HEMOGLOBIN 7.9 g/dL (12.0-18.0); BG VENT MODE VENT - CPAP
[2022-04-18] MEDS: NOREPINEPHRINE 32 MG in DEXT 5% WATER 218 ML IV PRN (17:10)
[2022-04-18 17:12] LABS: BG BASE EXCESS 2.1 mmol/L (-2.0-2.0); BG CARBOXYHEMOGLOBIN 0.3 % (0.5-1.5); BG DEOXYHEMOGLOBIN 3.9 % (0.0-5.0); BG FRACTION INSPIRED OXYGEN 40; BG HCO3 ACT 25.9 mmol/L (22.0-26.0); BG METHEMOGLOBIN 0.4 % (0.0-1.5); BG OXYGEN SATURATION 96.1 % (92.0-98.5); BG OXYHEMOGLOBIN 95.4 % (94.0-97.0); BG PCO2 36.8 mmHg (35.0-45.0); BG PH 7.465 (7.350-7.450); BG PO2 82.9 mmHg (75.0-100.0); BG SAMPLE SITE LEFT RADIAL; BG TOTAL HEMOGLOBIN 7.9 g/dL (12.0-18.0); BG VENT MODE COOL AEROSOL
[2022-04-18] MEDS: FAMOTIDINE 20MG/2ML VIAL IV SCH (21:04)
[2022-04-18] MEDS: TOTAL PARENTERAL NUTRITION 1,800 ML IV SCH (21:14)
[2022-04-19] VITALS (56 sets, daily range): BP systolic 97–148; BP diastolic 42–78
[2022-04-19] MEDS: BLOOD SUGAR DIAGNOSTIC STRIP TEST SCH ×5 (00:10→23:50)
[2022-04-19] MEDS: INSULIN LISPRO 100 UNITS/ML SUBCUT SCH ×4 (00:17→18:45)
[2022-04-19] MEDS: IPRATROPIUM/ALBUTEROL 0.5-3(2.5)MG/3ML NEB HHN SCH ×4 (01:51→20:57)
[2022-04-19 07:08] LABS: MEAN CORPUSCULAR HEMOGLOBIN 27.3 pg (28.0-32.0); MEAN CORPUSCULAR VOLUME 82.6 fL (80.0-94.0); MEAN PLATELET VOLUME 9.4 fl (7.4-10.4); PLATELET 76 x1000/uL (130-400); RED BLOOD CELL COUNT 2.51 mill/uL (4.7-6.1)
[2022-04-19 07:50] LABS: HEMOGLOBIN. 6.9 g/dL (14.0-18.0)
[2022-04-19 07:51] LABS: HEMATOCRIT. 20.7 % (42.0-52.0)
[2022-04-19] MEDS: FUROSEMIDE 100MG/10ML VIAL IVP SCH ×3 (09:00→18:44)
[2022-04-19] MEDS ORDERED: TOTAL PARENTERAL NUTRITION 1,800 ML IV SCH (09:45)
[2022-04-19 21:19] LABS: HEMATOCRIT 27.8 % (42.0-52.0); HEMOGLOBIN 9.2 g/dL (14.0-18.0)
[2022-04-19] MEDS: FAT EMULSIONS 250 ML IV SCH (21:42)
[2022-04-19] MEDS: FAMOTIDINE 20MG/2ML VIAL IV SCH (21:42)
[2022-04-19] MEDS: TOTAL PARENTERAL NUTRITION IV SCH ×2 (21:43→21:44)
[2022-04-20] VITALS (89 sets, daily range): BP systolic 94–145; BP diastolic 47–97
[2022-04-20] MEDS: INSULIN LISPRO 100 UNITS/ML SUBCUT SCH ×4 (00:19→18:00)
[2022-04-20] MEDS: IPRATROPIUM/ALBUTEROL 0.5-3(2.5)MG/3ML NEB HHN SCH ×3 (00:57→13:36)
[2022-04-20] MEDS: NOREPINEPHRINE 32 MG in DEXT 5% WATER 218 ML IV PRN (03:28)
[2022-04-20 05:26] LABS: HEMATOCRIT. 25.6 % (42.0-52.0); HEMOGLOBIN. 8.7 g/dL (14.0-18.0); MEAN CORPUSCULAR VOLUME 82.1 fL (80.0-94.0); MEAN PLATELET VOLUME 9.6 fl (7.4-10.4); PLATELET 99 x1000/uL (130-400); RED BLOOD CELL COUNT 3.12 mill/uL (4.7-6.1); RED CELL DISTRIBUTION WIDTH 16.6 % (11.6-14.6)
[2022-04-20] MEDS: BLOOD SUGAR DIAGNOSTIC STRIP TEST SCH ×3 (06:12→18:01)
[2022-04-20] MEDS: FUROSEMIDE 100MG/10ML VIAL IVP SCH ×3 (08:34→18:01)
[2022-04-20 12:11] LABS: HEMATOCRIT 24.7 % (42.0-52.0)
[2022-04-20 12:47] LABS: PLATELET ESTIMATE DECREASED
[2022-04-20 19:21] LABS: HEMATOCRIT 25.5 % (42.0-52.0); HEMOGLOBIN 8.5 g/dL (14.0-18.0)
[2022-04-20] MEDS: FAMOTIDINE 20MG/2ML VIAL IV SCH (20:58)
[2022-04-20] MEDS: TOTAL PARENTERAL NUTRITION IV SCH (20:58)
[2022-04-20 22:25] LABS: HEPATITIS B SURFACE ANTIGEN NEGATIVE
[2022-04-21] VITALS (57 sets, daily range): BP systolic 84–144; BP diastolic 41–66
[2022-04-21] MEDS: INSULIN LISPRO 100 UNITS/ML SUBCUT SCH ×4 (00:22→18:00)
[2022-04-21 02:14] LABS: HEMATOCRIT 23.5 % (42.0-52.0)
[2022-04-21] MEDS: IPRATROPIUM/ALBUTEROL 0.5-3(2.5)MG/3ML NEB HHN SCH ×4 (02:27→20:42)
[2022-04-21] MEDS: BLOOD SUGAR DIAGNOSTIC STRIP TEST SCH ×4 (06:00→18:00)
[2022-04-21 07:50] LABS: PLATELET ESTIMATE DECREASED
[2022-04-21 08:19] LABS: HEMOGLOBIN. 8.1 g/dL (14.0-18.0); MEAN CORPUSCULAR HEMOGLOBIN 27.7 pg (28.0-32.0); MEAN CORPUSCULAR VOLUME 81.5 fL (80.0-94.0); MEAN PLATELET VOLUME 9.4 fl (7.4-10.4); PLATELET 127 x1000/uL (130-400); RED BLOOD CELL COUNT 2.94 mill/uL (4.7-6.1); RED CELL DISTRIBUTION WIDTH 16.3 % (11.6-14.6)
[2022-04-21] MEDS: FUROSEMIDE 100MG/10ML VIAL IVP SCH ×3 (10:24→18:06)
[2022-04-21 10:59] LABS: PLATELET ESTIMATE SLIGHTLY DECREASED
[2022-04-21 12:56] LABS: HEMATOCRIT 23.6 % (42.0-52.0)
[2022-04-21] MEDS ORDERED: TOTAL PARENTERAL NUTRITION IV SCH (21:00)
[2022-04-21] MEDS: FAMOTIDINE 20MG/2ML VIAL IV SCH (21:05)
[2022-04-21] MEDS: FAT EMULSIONS 250 ML IV SCH (21:09)
[2022-04-22] VITALS (52 sets, daily range): BP systolic 83–170; BP diastolic 39–116
[2022-04-22] MEDS: IPRATROPIUM/ALBUTEROL 0.5-3(2.5)MG/3ML NEB HHN SCH ×4 (00:56→20:03)
[2022-04-22 05:20] LABS: HEMATOCRIT 23.7 % (42.0-52.0); HEMOGLOBIN 7.9 g/dL (14.0-18.0)
[2022-04-22 05:59] LABS: HEMATOCRIT. 23.4 % (42.0-52.0); HEMOGLOBIN. 8.1 g/dL (14.0-18.0); MEAN CORPUSCULAR HEMOGLOBIN 28.2 pg (28.0-32.0); MEAN CORPUSCULAR VOLUME 81.5 fL (80.0-94.0); PLATELET 141 x1000/uL (130-400); RED BLOOD CELL COUNT 2.87 mill/uL (4.7-6.1); RED CELL DISTRIBUTION WIDTH 16.3 % (11.6-14.6)
[2022-04-22] MEDS: BLOOD SUGAR DIAGNOSTIC STRIP TEST SCH ×4 (06:00→18:12)
[2022-04-22] MEDS: INSULIN LISPRO 100 UNITS/ML SUBCUT SCH ×4 (06:00→18:00)
[2022-04-22] MEDS: FUROSEMIDE 100MG/10ML VIAL IVP SCH ×3 (09:08→16:59)
[2022-04-22 11:02] LABS: PLATELET ESTIMATE NORMAL
[2022-04-22] MEDS ORDERED: NALOXONE HCL 0.4MG/ML VIAL IV PRN (18:15)
[2022-04-22] MEDS: MORPHINE SULFATE 2 MG/ML CPJ (NOT FOR IM USE) IV PRN (18:16)
[2022-04-22] MEDS: FAMOTIDINE 20MG/2ML VIAL IV SCH (21:03)
[2022-04-22] MEDS: THIAMINE HCL 100 MG in SODIUM CHLORIDE 0.9% 50 ML IV SCH (21:04)
[2022-04-22] MEDS: EPOETIN ALFA-EPBX 4,000 UNIT/ML VIAL SUBCUT SCH (21:04)
[2022-04-22] MEDS: TOTAL PARENTERAL NUTRITION 1,500 ML IV SCH (21:16)
[2022-04-23] VITALS (77 sets, daily range): BP systolic 87–129; BP diastolic 38–103
[2022-04-23] MEDS: INSULIN LISPRO 100 UNITS/ML SUBCUT SCH ×4 (00:36→18:00)
[2022-04-23] MEDS: BLOOD SUGAR DIAGNOSTIC STRIP TEST SCH ×4 (00:36→18:00)
[2022-04-23] MEDS: IPRATROPIUM/ALBUTEROL 0.5-3(2.5)MG/3ML NEB HHN SCH ×4 (01:47→20:37)
[2022-04-23 05:50] LABS: HEMATOCRIT. 22.1 % (42.0-52.0); HEMOGLOBIN. 7.5 g/dL (14.0-18.0); MEAN CORPUSCULAR HEMOGLOBIN 27.8 pg (28.0-32.0); MEAN CORPUSCULAR VOLUME 81.9 fL (80.0-94.0); MEAN PLATELET VOLUME 8.7 fl (7.4-10.4); PLATELET 179 x1000/uL (130-400); RED CELL DISTRIBUTION WIDTH 16.5 % (11.6-14.6)
[2022-04-23 09:25] LABS: PLATELET ESTIMATE NORMAL
[2022-04-23] MEDS: FUROSEMIDE 100MG/10ML VIAL IVP SCH ×3 (09:28→17:13)
[2022-04-23] MEDS: VASOPRESSIN 20 UNIT in SODIUM CHLORIDE 0.9% 99 ML IV PRN (13:13)
[2022-04-23] MEDS: PHENYLEPHRINE 100 MG in DEXT 5% WATER 240 ML IV PRN (13:18)
[2022-04-23] MEDS: THIAMINE HCL 100 MG in SODIUM CHLORIDE 0.9% 50 ML IV SCH (21:19)
[2022-04-23] MEDS: FAMOTIDINE 20MG/2ML VIAL IV SCH (21:19)
[2022-04-23] MEDS: TOTAL PARENTERAL NUTRITION 1,500 ML IV SCH (21:25)
[2022-04-24] MEDS: INSULIN LISPRO 100 UNITS/ML SUBCUT SCH ×3 (01:09→12:43)
[2022-04-24] MEDS: IPRATROPIUM/ALBUTEROL 0.5-3(2.5)MG/3ML NEB HHN SCH ×4 (01:35→21:35)
[2022-04-24] MEDS: BLOOD SUGAR DIAGNOSTIC STRIP TEST SCH ×4 (06:00→18:00)
[2022-04-24 07:52] LABS: HEMATOCRIT. 22.7 % (42.0-52.0); HEMOGLOBIN. 7.7 g/dL (14.0-18.0); MEAN CORPUSCULAR HEMOGLOBIN 27.8 pg (28.0-32.0); MEAN CORPUSCULAR VOLUME 82.2 fL (80.0-94.0); MEAN PLATELET VOLUME 8.1 fl (7.4-10.4); PLATELET 235 x1000/uL (130-400); RED BLOOD CELL COUNT 2.76 mill/uL (4.7-6.1); RED CELL DISTRIBUTION WIDTH 16.2 % (11.6-14.6)
[2022-04-24 08:00] VITALS: BP 109/61
[2022-04-24] MEDS: FUROSEMIDE 100MG/10ML VIAL IVP SCH ×3 (09:10→16:53)
[2022-04-24] MEDS: MORPHINE SULFATE 2 MG/ML CPJ (NOT FOR IM USE) IV PRN (09:44)
[2022-04-24 12:00] VITALS: BP 98/44
[2022-04-24 13:56] LABS: PLATELET ESTIMATE NORMAL
[2022-04-24 16:00] VITALS: BP 109/57
[2022-04-24 20:03] VITALS: BP 133/66
[2022-04-24] MEDS: THIAMINE HCL 100 MG in SODIUM CHLORIDE 0.9% 50 ML IV SCH (20:46)
[2022-04-24] MEDS: FAMOTIDINE 20MG/2ML VIAL IV SCH (20:46)
[2022-04-24] MEDS: TOTAL PARENTERAL NUTRITION 1,500 ML IV SCH (20:49)
[2022-04-25] VITALS (11 sets, daily range): BP systolic 97–131; BP diastolic 45–68
[2022-04-25] MEDS: BLOOD SUGAR DIAGNOSTIC STRIP TEST SCH ×4 (00:07→18:17)
[2022-04-25] MEDS: INSULIN LISPRO 100 UNITS/ML SUBCUT SCH ×4 (00:13→18:34)
[2022-04-25] MEDS: IPRATROPIUM/ALBUTEROL 0.5-3(2.5)MG/3ML NEB HHN SCH ×4 (01:20→20:35)
[2022-04-25 06:36] LABS: BASOPHILS % 1.1 % (0.0-2.0); EOSINOPHILS % 2.1 % (0.0-5.0); LYMPHOCYTES % 7.6 % (20.0-50.0); MEAN CORPUSCULAR HEMOGLOBIN 27.3 pg (28.0-32.0); MEAN CORPUSCULAR VOLUME 81.2 fL (80.0-94.0); MEAN PLATELET VOLUME 8.2 fl (7.4-10.4); MONOCYTES % 8.5 % (2.0-8.0); NEUTROPHILS % 80.7 % (40.0-76.0); PLATELET 261 x1000/uL (130-400); RED BLOOD CELL COUNT 2.44 mill/uL (4.7-6.1); RED CELL DISTRIBUTION WIDTH 16.2 % (11.6-14.6)
[2022-04-25 07:44] LABS: HEMATOCRIT. 19.8 % (42.0-52.0); HEMOGLOBIN. 6.7 g/dL (14.0-18.0)
[2022-04-25 08:07] LABS: CHLORIDE 100 mEq/L (98-107)
[2022-04-25 08:23] LABS: PHOSPHORUS 1.6 mg/dL (2.5-4.9)
[2022-04-25 11:56] LABS: HEMATOCRIT 21.3 % (42.0-52.0); HEMOGLOBIN 7.3 g/dL (14.0-18.0)
[2022-04-25] MEDS ORDERED: POTASSIUM PHOS,M-BASIC-D-BASIC 20 MMOL in DEXTROSE 5% WATER 250 ML IV NR (15:00)
[2022-04-25] MEDS: EPOETIN ALFA-EPBX 4,000 UNIT/ML VIAL SUBCUT SCH (22:42)
[2022-04-25] MEDS: FAMOTIDINE 20MG/2ML VIAL IV SCH (22:42)
[2022-04-25] MEDS: THIAMINE HCL 100 MG in SODIUM CHLORIDE 0.9% 50 ML IV SCH (22:44)
[2022-04-25] MEDS: TOTAL PARENTERAL NUTRITION 1,500 ML IV SCH (22:50)
[2022-04-26] VITALS: BP 125/65
[2022-04-26] MEDS: IPRATROPIUM/ALBUTEROL 0.5-3(2.5)MG/3ML NEB HHN SCH ×4 (01:25→19:54)
[2022-04-26 04:00] VITALS: BP 105/55
[2022-04-26] MEDS: BLOOD SUGAR DIAGNOSTIC STRIP TEST SCH ×4 (06:00→17:49)
[2022-04-26 06:30] LABS: HEMATOCRIT. 24.4 % (42.0-52.0); HEMOGLOBIN. 8.4 g/dL (14.0-18.0); MEAN CORPUSCULAR HEMOGLOBIN 28.5 pg (28.0-32.0); MEAN CORPUSCULAR VOLUME 82.9 fL (80.0-94.0); PLATELET 301 x1000/uL (130-400); RED BLOOD CELL COUNT 2.94 mill/uL (4.7-6.1); RED CELL DISTRIBUTION WIDTH 16.9 % (11.6-14.6)
[2022-04-26 08:15] VITALS: BP 112/63
[2022-04-26 12:15] VITALS: BP 119/68
[2022-04-26] MEDS: INSULIN LISPRO 100 UNITS/ML SUBCUT SCH ×2 (12:29→17:49)
[2022-04-26 16:30] VITALS: BP 121/59
[2022-04-26] MEDS: FAMOTIDINE 20MG/2ML VIAL IV SCH (21:38)
[2022-04-26] MEDS: FAT EMULSIONS 250 ML IV SCH (21:39)
[2022-04-26] MEDS: TOTAL PARENTERAL NUTRITION 1,500 ML IV SCH (21:40)
[2022-04-26 21:54] LABS: PLATELET ESTIMATE NORMAL
[2022-04-27] VITALS: BP 111/65
[2022-04-27] MEDS ORDERED: ACETAMINOPHEN 650MG SUPP PR PRN (00:45)
[2022-04-27] MEDS: INSULIN LISPRO 100 UNITS/ML SUBCUT SCH ×4 (00:51→17:24)
[2022-04-27] MEDS: IPRATROPIUM/ALBUTEROL 0.5-3(2.5)MG/3ML NEB HHN SCH ×4 (01:51→21:10)
[2022-04-27 04:00] VITALS: BP 103/65
[2022-04-27] MEDS: BLOOD SUGAR DIAGNOSTIC STRIP TEST SCH ×4 (06:29→18:00)
[2022-04-27 07:01] LABS: BASOPHILS % 1.7 % (0.0-2.0); HEMATOCRIT. 23.3 % (42.0-52.0); HEMOGLOBIN. 7.9 g/dL (14.0-18.0); LYMPHOCYTES % 8.6 % (20.0-50.0); MEAN CORPUSCULAR HEMOGLOBIN 28.4 pg (28.0-32.0); MEAN CORPUSCULAR VOLUME 83.9 fL (80.0-94.0); MEAN PLATELET VOLUME 7.8 fl (7.4-10.4); MONOCYTES % 9.5 % (2.0-8.0); NEUTROPHILS % 74.2 % (40.0-76.0); PLATELET 327 x1000/uL (130-400); RED BLOOD CELL COUNT 2.77 mill/uL (4.7-6.1); RED CELL DISTRIBUTION WIDTH 17.1 % (11.6-14.6)
[2022-04-27 08:00] VITALS: BP 99/51
[2022-04-27 12:00] VITALS: BP 118/68
[2022-04-27 16:16] VITALS: BP 99/66
[2022-04-27 20:00] VITALS: BP 137/69
[2022-04-27] MEDS: FAMOTIDINE 20MG/2ML VIAL IV SCH (22:26)
[2022-04-27] MEDS: TOTAL PARENTERAL NUTRITION 1,500 ML IV SCH (22:32)
[2022-04-27] MEDS: EPOETIN ALFA-EPBX 4,000 UNIT/ML VIAL SUBCUT SCH (22:41)
[2022-04-28] VITALS (18 sets, daily range): BP systolic 50–158; BP diastolic 32–85
[2022-04-28] MEDS: INSULIN LISPRO 100 UNITS/ML SUBCUT SCH ×3 (01:57→17:49)
[2022-04-28] MEDS: BLOOD SUGAR DIAGNOSTIC STRIP TEST SCH ×4 (06:46→17:33)
[2022-04-28 08:15] LABS: BASOPHILS % 2.4 % (0.0-2.0); EOSINOPHILS % 7.6 % (0.0-5.0); HEMATOCRIT. 27.8 % (42.0-52.0); HEMOGLOBIN. 9.1 g/dL (14.0-18.0); LYMPHOCYTES % 7.4 % (20.0-50.0); MEAN CORPUSCULAR HEMOGLOBIN 27.8 pg (28.0-32.0); MEAN CORPUSCULAR VOLUME 84.8 fL (80.0-94.0); MEAN PLATELET VOLUME 7.8 fl (7.4-10.4); MONOCYTES % 9.9 % (2.0-8.0); NEUTROPHILS % 72.7 % (40.0-76.0); PLATELET 416 x1000/uL (130-400); RED BLOOD CELL COUNT 3.27 mill/uL (4.7-6.1)
[2022-04-28] MEDS: IPRATROPIUM/ALBUTEROL 0.5-3(2.5)MG/3ML NEB HHN SCH ×4 (09:05→21:07)
[2022-04-28 09:46] LABS: PHOSPHORUS 3.1 mg/dL (2.5-4.9)
[2022-04-28 09:52] LABS: BG CARBOXYHEMOGLOBIN 0.3 % (0.5-1.5); BG DEOXYHEMOGLOBIN 6.1 % (0.0-5.0); BG FRACTION INSPIRED OXYGEN 21; BG HCO3 ACT 21.7 mmol/L (22.0-26.0); BG OXYGEN SATURATION 93.9 % (92.0-98.5); BG OXYHEMOGLOBIN 93.6 % (94.0-97.0); BG PCO2 28.9 mmHg (35.0-45.0); BG PH 7.493 (7.350-7.450); BG PO2 67.5 mmHg (75.0-100.0); BG SAMPLE SITE LEFT RADIAL; BG TOTAL HEMOGLOBIN 9.3 g/dL (12.0-18.0); BG VENT MODE ROOM AIR
[2022-04-28] MEDS: MEROPENEM 500 MG in SODIUM CHLORIDE 0.9% 50 ML IV SCH ×2 (12:27→21:54)
[2022-04-28] MEDS ORDERED: DIATR MEGLU/DIATRIZOATE SOLN 30ML PO NR (15:30)
[2022-04-28] MEDS ORDERED: AMIKACIN SULFATE 250 MG in SODIUM CHLORIDE 0.9% 100 ML IV NR (17:00)
[2022-04-28] MEDS ORDERED: VANCOMYCIN 750MG PREMIX 150 ML IV NR (17:00)
[2022-04-28] MEDS: MICAFUNGIN 100 MG in SODIUM CHLORIDE 0.9% 100 ML IV SCH (18:23)
[2022-04-28] MEDS ORDERED: NOREPINEPHRINE 8MG/250ML PMX 250 ML IV PRN (20:30)
[2022-04-28] MEDS: NOREPINEPHRINE 8 MG in DEXTROSE 5% WATER 250 ML IV PRN (20:59)
[2022-04-28 21:23] LABS: BG BASE EXCESS -2.9 mmol/L (-2.0-2.0); BG CARBOXYHEMOGLOBIN 0.3 % (0.5-1.5); BG DEOXYHEMOGLOBIN 0.7 % (0.0-5.0); BG FRACTION INSPIRED OXYGEN 100; BG HCO3 ACT 22.6 mmol/L (22.0-26.0); BG METHEMOGLOBIN 0.3 % (0.0-1.5); BG OXYGEN SATURATION 99.3 % (92.0-98.5); BG OXYHEMOGLOBIN 98.7 % (94.0-97.0); BG PCO2 42.1 mmHg (35.0-45.0); BG PH 7.347 (7.350-7.450); BG PO2 412.9 mmHg (75.0-100.0); BG SAMPLE SITE RIGHT RADIAL; BG TOTAL HEMOGLOBIN 8.4 g/dL (12.0-18.0); BG VENT MODE VENT - AC
[2022-04-28] MEDS: PANTOPRAZOLE SODIUM 40 MG/VIAL IV SCH (21:53)
[2022-04-28] MEDS: FAT EMULSIONS 250 ML IV SCH (21:54)
[2022-04-28] MEDS: FAMOTIDINE 20MG/2ML VIAL IV SCH (21:54)
[2022-04-28] MEDS: TOTAL PARENTERAL NUTRITION 1,500 ML IV SCH (21:56)
[2022-04-28 23:42] LABS: BASOPHILS % 2.3 % (0.0-2.0); EOSINOPHILS % 4.1 % (0.0-5.0); HEMATOCRIT. 26.8 % (42.0-52.0); HEMOGLOBIN. 8.7 g/dL (14.0-18.0); LYMPHOCYTES % 4.4 % (20.0-50.0); MEAN CORPUSCULAR HEMOGLOBIN 27.7 pg (28.0-32.0); MEAN CORPUSCULAR VOLUME 85.3 fL (80.0-94.0); MEAN PLATELET VOLUME 7.8 fl (7.4-10.4); MONOCYTES % 8.2 % (2.0-8.0); PLATELET 471 x1000/uL (130-400); RED BLOOD CELL COUNT 3.14 mill/uL (4.7-6.1); RED CELL DISTRIBUTION WIDTH 17.6 % (11.6-14.6)
[2022-04-29] VITALS (95 sets, daily range): BP systolic 70–149; BP diastolic 33–82
[2022-04-29] MEDS: IPRATROPIUM/ALBUTEROL 0.5-3(2.5)MG/3ML NEB HHN SCH ×4 (00:36→20:55)
[2022-04-29] MEDS: INSULIN LISPRO 100 UNITS/ML SUBCUT SCH ×4 (00:50→18:27)
[2022-04-29 01:19] LABS: PHOSPHORUS 4.3 mg/dL (2.5-4.9)
[2022-04-29] MEDS ORDERED: MIDAZOLAM 100MG/100ML PMX 100 ML IV PRN (01:45)
[2022-04-29] MEDS: MIDAZOLAM HCL 100 MG in SODIUM CHLORIDE 0.9% 100 ML IV PRN ×2 (02:44→23:21)
[2022-04-29] MEDS: FENTANYL 2500MCG/250ML PMX 250 ML IV PRN (02:46)
[2022-04-29 03:45] LABS: HEMATOCRIT. 27.1 % (42.0-52.0); HEMOGLOBIN. 8.7 g/dL (14.0-18.0); MEAN CORPUSCULAR HEMOGLOBIN 27.6 pg (28.0-32.0); MEAN CORPUSCULAR VOLUME 85.6 fL (80.0-94.0); PLATELET 527 x1000/uL (130-400); RED BLOOD CELL COUNT 3.16 mill/uL (4.7-6.1); RED CELL DISTRIBUTION WIDTH 17.6 % (11.6-14.6)
[2022-04-29 03:51] LABS: INR 1.2; PROTHROMBIN TIME 12.7 sec (9.6-11.0)
[2022-04-29] MEDS: NOREPINEPHRINE 8 MG in DEXTROSE 5% WATER 250 ML IV PRN ×3 (05:32→21:21)
[2022-04-29] MEDS: BLOOD SUGAR DIAGNOSTIC STRIP TEST SCH ×4 (05:42→18:27)
[2022-04-29 07:54] LABS: PLATELET ESTIMATE INCREASED
[2022-04-29 08:26] LABS: BG BASE EXCESS -7.2 mmol/L (-2.0-2.0); BG CARBOXYHEMOGLOBIN 0.2 % (0.5-1.5); BG DEOXYHEMOGLOBIN 10.2 % (0.0-5.0); BG FRACTION INSPIRED OXYGEN 90; BG HCO3 ACT 19.8 mmol/L (22.0-26.0); BG OXYGEN SATURATION 89.8 % (92.0-98.5); BG OXYHEMOGLOBIN 89.6 % (94.0-97.0); BG PCO2 46.8 mmHg (35.0-45.0); BG PH 7.244 (7.350-7.450); BG PO2 64.2 mmHg (75.0-100.0); BG SAMPLE SITE LEFT RADIAL; BG TOTAL HEMOGLOBIN 8.9 g/dL (12.0-18.0); BG TOTAL RESPIRATORY RATE 20 b/min; BG VENT MODE VENT - AC
[2022-04-29] MEDS: PANTOPRAZOLE SODIUM 40 MG/VIAL IV SCH ×2 (08:50→20:30)
[2022-04-29] MEDS ORDERED: SODIUM BICARBONATE 8.4% 1 MEQ/ML 50ML SYR IV NR (10:15)
[2022-04-29] MEDS: MEROPENEM 500 MG in SODIUM CHLORIDE 0.9% 50 ML IV SCH ×2 (10:29→21:21)
[2022-04-29] MEDS ORDERED: PHENYLEPHRINE 100 MG in DEXT 5% WATER 240 ML IV PRN (11:00)
[2022-04-29 11:34] LABS: BG BASE EXCESS -0.4 mmol/L (-2.0-2.0); BG CARBOXYHEMOGLOBIN 0.2 % (0.5-1.5); BG HCO3 ACT 25.1 mmol/L (22.0-26.0); BG METHEMOGLOBIN 0.4 % (0.0-1.5); BG OXYHEMOGLOBIN 96.4 % (94.0-97.0); BG PCO2 44.9 mmHg (35.0-45.0); BG PH 7.365 (7.350-7.450); BG PO2 100.5 mmHg (75.0-100.0); BG SAMPLE SITE RIGHT RADIAL; BG TOTAL HEMOGLOBIN 9.1 g/dL (12.0-18.0); BG VENT MODE VENT - AC
[2022-04-29] MEDS: MICAFUNGIN 100 MG in SODIUM CHLORIDE 0.9% 100 ML IV SCH (17:18)
[2022-04-29] MEDS: FAMOTIDINE 20MG/2ML VIAL IV SCH (20:30)
[2022-04-29] MEDS: TOTAL PARENTERAL NUTRITION 1,500 ML IV SCH (20:34)
[2022-04-30] VITALS (86 sets, daily range): BP systolic 87–141; BP diastolic 37–59
[2022-04-30] MEDS: BLOOD SUGAR DIAGNOSTIC STRIP TEST SCH ×4 (00:08→18:23)
[2022-04-30] MEDS: INSULIN LISPRO 100 UNITS/ML SUBCUT SCH ×4 (00:10→18:22)
[2022-04-30] MEDS ORDERED: FUROSEMIDE 100MG/10ML VIAL IVP NR (01:00)
[2022-04-30] MEDS: IPRATROPIUM/ALBUTEROL 0.5-3(2.5)MG/3ML NEB HHN SCH ×4 (01:36→19:48)
[2022-04-30 07:32] LABS: CHLORIDE 113 mEq/L (98-107)
[2022-04-30] MEDS: NOREPINEPHRINE 8 MG in DEXTROSE 5% WATER 250 ML IV PRN ×3 (08:13→22:11)
[2022-04-30] MEDS ORDERED: CALCIUM GLUCONATE 100MG/ML 10ML VIAL IV ONE (10:15)
[2022-04-30] MEDS: PANTOPRAZOLE SODIUM 40 MG/VIAL IV SCH ×2 (10:20→20:35)
[2022-04-30] MEDS: FENTANYL 2500MCG/250ML PMX 250 ML IV PRN (10:20)
[2022-04-30] MEDS ORDERED: CALCIUM GLUCONATE 1GM PREMIX 50 ML IV NR (11:00)
[2022-04-30] MEDS ORDERED: VANCOMYCIN 1G PREMIX 200 ML IV NR (12:00)
[2022-04-30 12:56] LABS: HEMATOCRIT. 26.6 % (42.0-52.0); MEAN CORPUSCULAR HEMOGLOBIN 27.2 pg (28.0-32.0); MEAN CORPUSCULAR VOLUME 88.3 fL (80.0-94.0); MEAN PLATELET VOLUME 8.4 fl (7.4-10.4); PLATELET 449 x1000/uL (130-400); RED BLOOD CELL COUNT 3.01 mill/uL (4.7-6.1); RED CELL DISTRIBUTION WIDTH 18.1 % (11.6-14.6)
[2022-04-30 12:59] LABS: HEMOGLOBIN. 8.2 g/dL (14.0-18.0)
[2022-04-30] MEDS: FUROSEMIDE 40MG/4ML VIAL IVP SCH ×2 (16:00→18:01)
[2022-04-30 16:14] LABS: PLATELET ESTIMATE INCREASED
[2022-04-30 16:42] LABS: PHOSPHORUS 4.2 mg/dL (2.5-4.9)
[2022-04-30] MEDS: MICAFUNGIN 100 MG in SODIUM CHLORIDE 0.9% 100 ML IV SCH (18:00)
[2022-04-30] MEDS: MIDAZOLAM HCL 100 MG in SODIUM CHLORIDE 0.9% 100 ML IV PRN (20:00)
[2022-04-30] MEDS: FAMOTIDINE 20MG/2ML VIAL IV SCH (20:35)
[2022-04-30] MEDS: TOTAL PARENTERAL NUTRITION 1,500 ML IV SCH ×2 (20:37→21:00)
[2022-04-30] MEDS: MEROPENEM 500 MG in SODIUM CHLORIDE 0.9% 50 ML IV SCH (22:35)
[2022-05-01] VITALS (101 sets, daily range): BP systolic 71–145; BP diastolic 29–80
[2022-05-01] MEDS: BLOOD SUGAR DIAGNOSTIC STRIP TEST SCH ×4 (00:16→17:44)
[2022-05-01] MEDS: INSULIN LISPRO 100 UNITS/ML SUBCUT SCH ×4 (00:27→17:44)
[2022-05-01] MEDS: IPRATROPIUM/ALBUTEROL 0.5-3(2.5)MG/3ML NEB HHN SCH ×4 (02:07→20:04)
[2022-05-01] MEDS: NOREPINEPHRINE 8 MG in DEXTROSE 5% WATER 250 ML IV PRN ×2 (05:41→20:19)
[2022-05-01 05:46] LABS: HEMATOCRIT. 22.6 % (42.0-52.0); HEMOGLOBIN. 7.1 g/dL (14.0-18.0); MEAN CORPUSCULAR HEMOGLOBIN 27.3 pg (28.0-32.0); MEAN CORPUSCULAR VOLUME 87.1 fL (80.0-94.0); MEAN PLATELET VOLUME 8.4 fl (7.4-10.4); PLATELET 448 x1000/uL (130-400); RED BLOOD CELL COUNT 2.59 mill/uL (4.7-6.1); RED CELL DISTRIBUTION WIDTH 18.2 % (11.6-14.6)
[2022-05-01] MEDS: FUROSEMIDE 40MG/4ML VIAL IVP SCH ×3 (08:59→17:44)
[2022-05-01] MEDS: PANTOPRAZOLE SODIUM 40 MG/VIAL IV SCH ×2 (08:59→20:19)
[2022-05-01 10:11] LABS: PLATELET ESTIMATE INCREASED
[2022-05-01 14:19] LABS: HEPATITIS B SURFACE ANTIGEN NEGATIVE
[2022-05-01] MEDS ORDERED: DIGOXIN 500MCG/2ML AMP IV NR ×2 (15:45→17:45)
[2022-05-01] MEDS: MICAFUNGIN 100 MG in SODIUM CHLORIDE 0.9% 100 ML IV SCH (17:44)
[2022-05-01] MEDS: MEROPENEM 500 MG in SODIUM CHLORIDE 0.9% 50 ML IV SCH (20:19)
[2022-05-01] MEDS: TOTAL PARENTERAL NUTRITION 1,500 ML IV SCH (20:34)
[2022-05-02] VITALS (50 sets, daily range): BP systolic 117–161; BP diastolic 50–80
[2022-05-02] MEDS: BLOOD SUGAR DIAGNOSTIC STRIP TEST SCH ×5 (00:26→23:52)
[2022-05-02] MEDS: INSULIN LISPRO 100 UNITS/ML SUBCUT SCH ×4 (00:39→18:00)
[2022-05-02] MEDS: IPRATROPIUM/ALBUTEROL 0.5-3(2.5)MG/3ML NEB HHN SCH ×4 (01:03→20:47)
[2022-05-02 05:24] LABS: HEMATOCRIT. 26.6 % (42.0-52.0); HEMOGLOBIN. 8.2 g/dL (14.0-18.0); MEAN CORPUSCULAR HEMOGLOBIN 26.9 pg (28.0-32.0); MEAN CORPUSCULAR VOLUME 87.2 fL (80.0-94.0); MEAN PLATELET VOLUME 8.5 fl (7.4-10.4); PLATELET 375 x1000/uL (130-400); RED BLOOD CELL COUNT 3.05 mill/uL (4.7-6.1)
[2022-05-02 05:37] LABS: CHLORIDE 104 mEq/L (98-107)
[2022-05-02 05:51] LABS: PHOSPHORUS 3.7 mg/dL (2.5-4.9)
[2022-05-02] MEDS: FUROSEMIDE 40MG/4ML VIAL IVP SCH ×3 (09:25→17:17)
[2022-05-02] MEDS: PANTOPRAZOLE SODIUM 40 MG/VIAL IV SCH ×2 (09:25→21:23)
[2022-05-02] MEDS ORDERED: [UNRECOGNIZED DRUG - OTHER] XX SCH (13:30)
[2022-05-02 14:11] LABS: NUCLEATED RED BLOOD CELLS 1 /100 WBC; PLATELET ESTIMATE NORMAL
[2022-05-02] MEDS: LEVOFLOXACIN 250MG PREMIX 50 ML IV SCH (16:31)
[2022-05-02] MEDS: MICAFUNGIN 100 MG in SODIUM CHLORIDE 0.9% 100 ML IV SCH (17:15)
[2022-05-02] MEDS: MEROPENEM 500 MG in SODIUM CHLORIDE 0.9% 50 ML IV SCH (21:23)
[2022-05-02] MEDS: TOTAL PARENTERAL NUTRITION 1,500 ML IV SCH (21:24)
[2022-05-03] VITALS (49 sets, daily range): BP systolic 104–132; BP diastolic 38–59
[2022-05-03] MEDS ORDERED: INSULIN LISPRO 100 UNITS/ML SUBCUT NR (00:30)
[2022-05-03] MEDS: INSULIN LISPRO 100 UNITS/ML SUBCUT SCH ×4 (00:39→18:28)
[2022-05-03] MEDS: FENTANYL 2500MCG/250ML PMX 250 ML IV PRN (00:42)
[2022-05-03] MEDS: IPRATROPIUM/ALBUTEROL 0.5-3(2.5)MG/3ML NEB HHN SCH ×4 (01:43→19:48)
[2022-05-03] MEDS: MIDAZOLAM HCL 100 MG in SODIUM CHLORIDE 0.9% 100 ML IV PRN (01:47)
[2022-05-03] MEDS: BLOOD SUGAR DIAGNOSTIC STRIP TEST SCH ×3 (05:38→18:19)
[2022-05-03 05:48] LABS: MEAN CORPUSCULAR HEMOGLOBIN 27.6 pg (28.0-32.0); MEAN CORPUSCULAR VOLUME 85.5 fL (80.0-94.0); MEAN PLATELET VOLUME 8.7 fl (7.4-10.4); PLATELET 321 x1000/uL (130-400); RED BLOOD CELL COUNT 2.27 mill/uL (4.7-6.1)
[2022-05-03 06:54] LABS: HEMATOCRIT. 19.4 % (42.0-52.0); HEMOGLOBIN. 6.3 g/dL (14.0-18.0)
[2022-05-03] MEDS: PANTOPRAZOLE SODIUM 40 MG/VIAL IV SCH ×2 (09:00→21:40)
[2022-05-03] MEDS: FUROSEMIDE 40MG/4ML VIAL IVP SCH ×3 (09:00→17:41)
[2022-05-03] MEDS: INSULIN GLARGINE 100 UNITS/ML SUBCUT SCH (10:58)
[2022-05-03 12:52] LABS: PLATELET ESTIMATE NORMAL
[2022-05-03 18:01] LABS: HEMATOCRIT. 22.6 % (42.0-52.0); HEMOGLOBIN. 7.5 g/dL (14.0-18.0); MEAN CORPUSCULAR HEMOGLOBIN 28.1 pg (28.0-32.0); MEAN CORPUSCULAR VOLUME 84.8 fL (80.0-94.0); PLATELET 255 x1000/uL (130-400); RED BLOOD CELL COUNT 2.67 mill/uL (4.7-6.1); RED CELL DISTRIBUTION WIDTH 17.2 % (11.6-14.6)
[2022-05-03] MEDS: MICAFUNGIN 100 MG in SODIUM CHLORIDE 0.9% 100 ML IV SCH (19:52)
[2022-05-03 20:52] LABS: PLATELET ESTIMATE NORMAL
[2022-05-03] MEDS: MEROPENEM 500 MG in SODIUM CHLORIDE 0.9% 50 ML IV SCH (21:38)
[2022-05-03] MEDS: FAT EMULSIONS 250 ML IV SCH (21:40)
[2022-05-03] MEDS: TOTAL PARENTERAL NUTRITION 1,500 ML IV SCH (21:42)
[2022-05-04] VITALS (91 sets, daily range): BP systolic 112–159; BP diastolic 43–68
[2022-05-04] MEDS: IPRATROPIUM/ALBUTEROL 0.5-3(2.5)MG/3ML NEB HHN SCH ×4 (00:31→19:46)
[2022-05-04] MEDS: INSULIN LISPRO 100 UNITS/ML SUBCUT SCH ×4 (01:09→18:09)
[2022-05-04 05:42] LABS: HEMATOCRIT. 23.3 % (42.0-52.0); HEMOGLOBIN. 7.9 g/dL (14.0-18.0); MEAN CORPUSCULAR HEMOGLOBIN 29.3 pg (28.0-32.0); MEAN PLATELET VOLUME 8.4 fl (7.4-10.4); PLATELET 256 x1000/uL (130-400); RED BLOOD CELL COUNT 2.71 mill/uL (4.7-6.1); RED CELL DISTRIBUTION WIDTH 17.5 % (11.6-14.6)
[2022-05-04] MEDS: BLOOD SUGAR DIAGNOSTIC STRIP TEST SCH ×4 (06:54→17:59)
[2022-05-04 08:24] LABS: PLATELET ESTIMATE NORMAL
[2022-05-04] MEDS: PANTOPRAZOLE SODIUM 40 MG/VIAL IV SCH ×2 (08:30→21:09)
[2022-05-04] MEDS: FUROSEMIDE 40MG/4ML VIAL IVP SCH ×3 (08:30→18:02)
[2022-05-04] MEDS: INSULIN GLARGINE 100 UNITS/ML SUBCUT SCH ×2 (10:05→21:12)
[2022-05-04 11:42] LABS: BG BASE EXCESS -3.7 mmol/L (-2.0-2.0); BG CARBOXYHEMOGLOBIN 0.3 % (0.5-1.5); BG DEOXYHEMOGLOBIN 1.2 % (0.0-5.0); BG FRACTION INSPIRED OXYGEN 55; BG HCO3 ACT 21.5 mmol/L (22.0-26.0); BG METHEMOGLOBIN 0.3 % (0.0-1.5); BG OXYGEN SATURATION 98.8 % (92.0-98.5); BG OXYHEMOGLOBIN 98.2 % (94.0-97.0); BG PCO2 39.8 mmHg (35.0-45.0); BG PH 7.351 (7.350-7.450); BG PO2 184.9 mmHg (75.0-100.0); BG SAMPLE SITE RIGHT RADIAL; BG TOTAL HEMOGLOBIN 8.8 g/dL (12.0-18.0); BG VENT MODE VENT - AC
[2022-05-04] MEDS ORDERED: NALOXONE HCL 0.4MG/ML VIAL IV PRN (11:45)
[2022-05-04] MEDS: MORPHINE SULFATE 2 MG/ML CPJ (NOT FOR IM USE) IV PRN (12:04)
[2022-05-04 12:44] LABS: HEMATOCRIT. 23.8 % (42.0-52.0); MEAN CORPUSCULAR HEMOGLOBIN 28.4 pg (28.0-32.0); MEAN CORPUSCULAR VOLUME 84.9 fL (80.0-94.0); MEAN PLATELET VOLUME 8.3 fl (7.4-10.4); PLATELET 253 x1000/uL (130-400); RED CELL DISTRIBUTION WIDTH 17.5 % (11.6-14.6)
[2022-05-04] MEDS: LEVOFLOXACIN 250MG PREMIX 50 ML IV SCH (16:00)
[2022-05-04] MEDS ORDERED: LORAZEPAM 2MG/ML CPJ IV PRN (16:30)
[2022-05-04 17:47] LABS: CHLORIDE 103 mEq/L (98-107)
[2022-05-04 18:13] LABS: PLATELET ESTIMATE NORMAL
[2022-05-04] MEDS: MEROPENEM 500 MG in SODIUM CHLORIDE 0.9% 50 ML IV SCH (21:10)
[2022-05-04] MEDS: TOTAL PARENTERAL NUTRITION 1,500 ML IV SCH (21:12)
[2022-05-05] VITALS (50 sets, daily range): BP systolic 94–162; BP diastolic 43–72
[2022-05-05] MEDS: BLOOD SUGAR DIAGNOSTIC STRIP TEST SCH ×3 (00:39→12:07)
[2022-05-05] MEDS: INSULIN LISPRO 100 UNITS/ML SUBCUT SCH ×3 (00:43→12:00)
[2022-05-05] MEDS: IPRATROPIUM/ALBUTEROL 0.5-3(2.5)MG/3ML NEB HHN SCH ×4 (01:36→19:52)
[2022-05-05] MEDS: MORPHINE SULFATE 2 MG/ML CPJ (NOT FOR IM USE) IV PRN ×3 (02:04→12:16)
[2022-05-05 06:23] LABS: HEMATOCRIT. 23.8 % (42.0-52.0); HEMOGLOBIN. 7.8 g/dL (14.0-18.0); MEAN CORPUSCULAR HEMOGLOBIN 28.3 pg (28.0-32.0); MEAN CORPUSCULAR VOLUME 86.6 fL (80.0-94.0); MEAN PLATELET VOLUME 8.7 fl (7.4-10.4); PLATELET 223 x1000/uL (130-400); RED BLOOD CELL COUNT 2.75 mill/uL (4.7-6.1); RED CELL DISTRIBUTION WIDTH 17.1 % (11.6-14.6)
[2022-05-05 07:01] LABS: CHLORIDE 105 mEq/L (98-107)
[2022-05-05] MEDS: FUROSEMIDE 40MG/4ML VIAL IVP SCH (08:36)
[2022-05-05] MEDS: PANTOPRAZOLE SODIUM 40 MG/VIAL IV SCH ×2 (08:36→21:18)
[2022-05-05] MEDS: INSULIN GLARGINE 100 UNITS/ML SUBCUT SCH ×2 (09:56→21:20)
[2022-05-05 13:12] LABS: NUCLEATED RED BLOOD CELLS 1 /100 WBC; PLATELET ESTIMATE NORMAL
[2022-05-05] MEDS: PROPOFOL 10MG/ML 100ML 100 ML IV PRN (13:15)
[2022-05-05 15:05] LABS: BG BASE EXCESS -2.2 mmol/L (-2.0-2.0); BG CARBOXYHEMOGLOBIN 0.2 % (0.5-1.5); BG DEOXYHEMOGLOBIN 1.5 % (0.0-5.0); BG FRACTION INSPIRED OXYGEN 55; BG HCO3 ACT 22.6 mmol/L (22.0-26.0); BG METHEMOGLOBIN 0.5 % (0.0-1.5); BG OXYGEN SATURATION 98.5 % (92.0-98.5); BG OXYHEMOGLOBIN 97.8 % (94.0-97.0); BG PCO2 38.6 mmHg (35.0-45.0); BG PH 7.385 (7.350-7.450); BG PO2 201.9 mmHg (75.0-100.0); BG SAMPLE SITE RIGHT RADIAL; BG VENT MODE VENT - AC
[2022-05-05] MEDS: DEXTROSE 50% WATER 50ML SYRINGE IV PRN (17:17)
[2022-05-05 20:18] LABS: VITAMIN B12 SERUM > 2000.0 pg/mL (211-911)
[2022-05-05] MEDS: FAT EMULSIONS 250 ML IV SCH (21:18)
[2022-05-05] MEDS: MEROPENEM 500 MG in SODIUM CHLORIDE 0.9% 50 ML IV SCH (21:18)
[2022-05-05] MEDS: TOTAL PARENTERAL NUTRITION 1,500 ML IV SCH (21:19)
[2022-05-06] VITALS (60 sets, daily range): BP systolic 74–141; BP diastolic 39–73
[2022-05-06] MEDS: IPRATROPIUM/ALBUTEROL 0.5-3(2.5)MG/3ML NEB HHN SCH ×4 (01:55→20:14)
[2022-05-06] MEDS: BLOOD SUGAR DIAGNOSTIC STRIP TEST SCH ×4 (05:05→17:59)
[2022-05-06] MEDS: INSULIN LISPRO 100 UNITS/ML SUBCUT SCH ×4 (05:05→17:59)
[2022-05-06 06:24] LABS: HEMATOCRIT. 23.9 % (42.0-52.0); HEMOGLOBIN. 8.3 g/dL (14.0-18.0); MEAN CORPUSCULAR HEMOGLOBIN 29.2 pg (28.0-32.0); MEAN CORPUSCULAR VOLUME 84.3 fL (80.0-94.0); MEAN PLATELET VOLUME 8.4 fl (7.4-10.4); PLATELET 298 x1000/uL (130-400); RED BLOOD CELL COUNT 2.84 mill/uL (4.7-6.1); RED CELL DISTRIBUTION WIDTH 17.5 % (11.6-14.6)
[2022-05-06 08:19] LABS: BG BASE EXCESS -0.6 mmol/L (-2.0-2.0); BG CARBOXYHEMOGLOBIN 0.3 % (0.5-1.5); BG DEOXYHEMOGLOBIN 1.1 % (0.0-5.0); BG FRACTION INSPIRED OXYGEN 55; BG HCO3 ACT 23.9 mmol/L (22.0-26.0); BG METHEMOGLOBIN 0.4 % (0.0-1.5); BG OXYGEN SATURATION 98.9 % (92.0-98.5); BG OXYHEMOGLOBIN 98.2 % (94.0-97.0); BG PCO2 38.6 mmHg (35.0-45.0); BG PO2 187.5 mmHg (75.0-100.0); BG SAMPLE SITE RIGHT RADIAL; BG TOTAL HEMOGLOBIN 8.5 g/dL (12.0-18.0); BG VENT MODE VENT - AC
[2022-05-06] MEDS: INSULIN GLARGINE 100 UNITS/ML SUBCUT SCH ×2 (10:00→21:50)
[2022-05-06] MEDS: PANTOPRAZOLE SODIUM 40 MG/VIAL IV SCH ×2 (10:20→21:39)
[2022-05-06] MEDS: DEXTROSE 50% WATER 50ML SYRINGE IV PRN (10:25)
[2022-05-06] MEDS ORDERED: KCL 20MEQ/100ML PREMIX 100 ML IV NR (12:00)
[2022-05-06 12:30] LABS: CHLORIDE 103 mEq/L (98-107)
[2022-05-06 12:57] LABS: PLATELET ESTIMATE NORMAL
[2022-05-06] MEDS: PROPOFOL 10MG/ML 100ML 100 ML IV PRN (13:08)
[2022-05-06] MEDS: LEVOFLOXACIN 250MG PREMIX 50 ML IV SCH (17:53)
[2022-05-06] MEDS: TOTAL PARENTERAL NUTRITION 1,500 ML IV SCH (21:38)
[2022-05-06] MEDS: MEROPENEM 500 MG in SODIUM CHLORIDE 0.9% 50 ML IV SCH (21:39)
[2022-05-07] VITALS (75 sets, daily range): BP systolic 83–151; BP diastolic 40–83
[2022-05-07] MEDS: IPRATROPIUM/ALBUTEROL 0.5-3(2.5)MG/3ML NEB HHN SCH ×4 (00:12→20:16)
[2022-05-07] MEDS: BLOOD SUGAR DIAGNOSTIC STRIP TEST SCH ×3 (00:13→12:34)
[2022-05-07] MEDS: PROPOFOL 10MG/ML 100ML 100 ML IV PRN ×2 (02:35→21:29)
[2022-05-07 05:47] LABS: HEMOGLOBIN. 7.7 g/dL (14.0-18.0); MEAN CORPUSCULAR HEMOGLOBIN 27.7 pg (28.0-32.0); MEAN CORPUSCULAR VOLUME 83.1 fL (80.0-94.0); MEAN PLATELET VOLUME 8.2 fl (7.4-10.4); PLATELET 292 x1000/uL (130-400); RED BLOOD CELL COUNT 2.76 mill/uL (4.7-6.1); RED CELL DISTRIBUTION WIDTH 18.2 % (11.6-14.6)
[2022-05-07] MEDS: INSULIN LISPRO 100 UNITS/ML SUBCUT SCH ×3 (06:00→12:00)
[2022-05-07] MEDS: PANTOPRAZOLE SODIUM 40 MG/VIAL IV SCH ×2 (09:03→21:07)
[2022-05-07] MEDS: INSULIN GLARGINE 100 UNITS/ML SUBCUT SCH ×2 (09:04→23:08)
[2022-05-07] MEDS ORDERED: POTASSIUM CHLORIDE INJ 40 MEQ in DEXT 5% WATER 250 ML IV ONE (09:15)
[2022-05-07] MEDS: KCL 20MEQ/100ML X 2 FOR TOTAL KCL 40MEQ/200ML IV SCH ×2 (09:54→12:35)
[2022-05-07 13:40] LABS: PLATELET ESTIMATE NORMAL
[2022-05-07] MEDS: MEROPENEM 500 MG in SODIUM CHLORIDE 0.9% 50 ML IV SCH (21:08)
[2022-05-07] MEDS: TOTAL PARENTERAL NUTRITION 1,500 ML IV SCH (21:09)
[2022-05-08] VITALS (77 sets, daily range): BP systolic 83–147; BP diastolic 44–72
[2022-05-08 05:25] LABS: HEMATOCRIT. 23.3 % (42.0-52.0); HEMOGLOBIN. 7.7 g/dL (14.0-18.0); MEAN CORPUSCULAR HEMOGLOBIN 27.6 pg (28.0-32.0); MEAN CORPUSCULAR VOLUME 83.5 fL (80.0-94.0); MEAN PLATELET VOLUME 8.1 fl (7.4-10.4); PLATELET 321 x1000/uL (130-400); RED CELL DISTRIBUTION WIDTH 18.4 % (11.6-14.6)
[2022-05-08] MEDS: INSULIN LISPRO 100 UNITS/ML SUBCUT SCH ×4 (06:00→18:34)
[2022-05-08 10:30] LABS: PLATELET ESTIMATE NORMAL
[2022-05-08] MEDS: PANTOPRAZOLE SODIUM 40 MG/VIAL IV SCH ×2 (10:58→21:39)
[2022-05-08] MEDS: INSULIN GLARGINE 100 UNITS/ML SUBCUT SCH ×2 (10:59→21:46)
[2022-05-08] MEDS: LEVOFLOXACIN 250MG PREMIX 50 ML IV SCH (15:54)
[2022-05-08] MEDS: PROPOFOL 10MG/ML 100ML 100 ML IV PRN ×2 (17:00→23:57)
[2022-05-08] MEDS ORDERED: KCL 20MEQ/100ML PREMIX 100 ML IV ONE (21:15)
[2022-05-08] MEDS: MEROPENEM 500 MG in SODIUM CHLORIDE 0.9% 50 ML IV SCH (21:38)
[2022-05-08] MEDS: TOTAL PARENTERAL NUTRITION 1,500 ML IV SCH (21:44)
[2022-05-09] VITALS (90 sets, daily range): BP systolic 67–123; BP diastolic 35–62
[2022-05-09 05:03] LABS: HEMATOCRIT. 23.2 % (42.0-52.0); HEMOGLOBIN. 7.8 g/dL (14.0-18.0); MEAN CORPUSCULAR HEMOGLOBIN 28.2 pg (28.0-32.0); MEAN CORPUSCULAR VOLUME 83.7 fL (80.0-94.0); MEAN PLATELET VOLUME 7.8 fl (7.4-10.4); PLATELET 331 x1000/uL (130-400); RED BLOOD CELL COUNT 2.77 mill/uL (4.7-6.1); RED CELL DISTRIBUTION WIDTH 17.8 % (11.6-14.6)
[2022-05-09 05:14] LABS: CHLORIDE 116 mEq/L (98-107)
[2022-05-09 05:24] LABS: PHOSPHORUS 3.5 mg/dL (2.5-4.9)
[2022-05-09] MEDS: INSULIN LISPRO 100 UNITS/ML SUBCUT SCH ×4 (05:38→17:48)
[2022-05-09] MEDS: PANTOPRAZOLE SODIUM 40 MG/VIAL IV SCH ×2 (09:38→22:03)
[2022-05-09] MEDS: INSULIN GLARGINE 100 UNITS/ML SUBCUT SCH ×2 (09:39→22:06)
[2022-05-09] MEDS ORDERED: MAGNESIUM 1 G PREMIX 100 ML IV NR (09:45)
[2022-05-09 11:11] LABS: BG BASE EXCESS -3.4 mmol/L (-2.0-2.0); BG CARBOXYHEMOGLOBIN 0.3 % (0.5-1.5); BG DEOXYHEMOGLOBIN 1.5 % (0.0-5.0); BG FRACTION INSPIRED OXYGEN 40; BG HCO3 ACT 20.9 mmol/L (22.0-26.0); BG METHEMOGLOBIN 0.3 % (0.0-1.5); BG OXYGEN SATURATION 98.5 % (92.0-98.5); BG OXYHEMOGLOBIN 97.9 % (94.0-97.0); BG PCO2 33.9 mmHg (35.0-45.0); BG PH 7.407 (7.350-7.450); BG PO2 164.2 mmHg (75.0-100.0); BG SAMPLE SITE RIGHT RADIAL; BG TOTAL HEMOGLOBIN 8.3 g/dL (12.0-18.0); BG VENT MODE VENT - AC
[2022-05-09 13:11] LABS: PLATELET ESTIMATE NORMAL
[2022-05-09] MEDS ORDERED: MAGNESIUM 4 G PREMIX 100 ML IV NR (14:00)
[2022-05-09] MEDS: NOREPINEPHRINE 8 MG in DEXTROSE 5% WATER 250 ML IV PRN (17:37)
[2022-05-09] MEDS: DEXTROSE 50% WATER 50ML SYRINGE IV PRN (17:37)
[2022-05-09] MEDS: BLOOD SUGAR DIAGNOSTIC STRIP TEST SCH (17:48)
[2022-05-09] MEDS ORDERED: NOREPINEPHRINE 32 MG in DEXT 5% WATER 242 ML IV PRN (19:54)
[2022-05-09] MEDS: MEROPENEM 500 MG in SODIUM CHLORIDE 0.9% 50 ML IV SCH (22:03)
[2022-05-09] MEDS: TOTAL PARENTERAL NUTRITION 1,500 ML IV SCH (22:06)
[2022-05-10] VITALS (84 sets, daily range): BP systolic 85–137; BP diastolic 41–68
[2022-05-10] MEDS: BLOOD SUGAR DIAGNOSTIC STRIP TEST SCH ×4 (00:24→18:54)
[2022-05-10] MEDS: PROPOFOL 10MG/ML 100ML 100 ML IV PRN ×2 (00:26→18:18)
[2022-05-10 05:14] LABS: HEMATOCRIT. 23.6 % (42.0-52.0); HEMOGLOBIN. 7.9 g/dL (14.0-18.0); MEAN CORPUSCULAR HEMOGLOBIN 28.1 pg (28.0-32.0); MEAN CORPUSCULAR VOLUME 83.8 fL (80.0-94.0); MEAN PLATELET VOLUME 7.8 fl (7.4-10.4); PLATELET 368 x1000/uL (130-400); RED BLOOD CELL COUNT 2.82 mill/uL (4.7-6.1); RED CELL DISTRIBUTION WIDTH 18.4 % (11.6-14.6)
[2022-05-10] MEDS: DEXTROSE 50% WATER 50ML SYRINGE IV PRN ×2 (05:52→12:52)
[2022-05-10] MEDS: MENTHOL/LANOLIN/CALAMINE/ZN OX OINT 71GM TOP PRN (05:52)
[2022-05-10] MEDS: INSULIN LISPRO 100 UNITS/ML SUBCUT SCH ×4 (05:52→18:00)
[2022-05-10] MEDS ORDERED: KCL 20MEQ/100ML PREMIX 100 ML IV NR (08:00)
[2022-05-10] MEDS: PANTOPRAZOLE SODIUM 40 MG/VIAL IV SCH ×2 (09:32→21:42)
[2022-05-10] MEDS: INSULIN GLARGINE 100 UNITS/ML SUBCUT SCH ×2 (10:00→21:43)
[2022-05-10 11:11] LABS: PLATELET ESTIMATE NORMAL
[2022-05-10 11:15] LABS: INR 1.2; PARTIAL THROMBOPLASTIN TIME 34.2 sec (23.4-31.0); PROTHROMBIN TIME 13.2 sec (9.6-11.0)
[2022-05-10] MEDS ORDERED: LIDOCAINE HCL 1% 20ML VIAL (Pyxis) INJ ONE (11:31)
[2022-05-10] MEDS ORDERED: ROCURONIUM BROMIDE 10MG/ML VIAL 5ML IV ONE (12:19)
[2022-05-10] MEDS ORDERED: VANCOMYCIN 1250MG in DEXTROSE 5% WATER 250ML IV SCH (14:00)
[2022-05-10] MEDS: MEROPENEM 1,000 MG in SODIUM CHLORIDE 0.9% 100 ML IV SCH (14:58)
[2022-05-10] MEDS: TOTAL PARENTERAL NUTRITION 1,500 ML IV SCH (21:40)
[2022-05-10] MEDS: FAT EMULSIONS 250 ML IV SCH (21:43)
[2022-05-11] VITALS (88 sets, daily range): BP systolic 82–155; BP diastolic 33–98
[2022-05-11] MEDS: BLOOD SUGAR DIAGNOSTIC STRIP TEST SCH ×4 (00:24→17:53)
[2022-05-11] MEDS: MEROPENEM 1,000 MG in SODIUM CHLORIDE 0.9% 100 ML IV SCH ×2 (04:47→13:34)
[2022-05-11] MEDS: INSULIN LISPRO 100 UNITS/ML SUBCUT SCH ×4 (06:21→18:00)
[2022-05-11] MEDS: PROPOFOL 10MG/ML 100ML 100 ML IV PRN ×2 (06:52→19:43)
[2022-05-11 06:54] LABS: HEMATOCRIT. 22.7 % (42.0-52.0); HEMOGLOBIN. 7.6 g/dL (14.0-18.0); MEAN CORPUSCULAR VOLUME 83.5 fL (80.0-94.0); MEAN PLATELET VOLUME 7.5 fl (7.4-10.4); PLATELET 348 x1000/uL (130-400); RED BLOOD CELL COUNT 2.71 mill/uL (4.7-6.1); RED CELL DISTRIBUTION WIDTH 18.4 % (11.6-14.6)
[2022-05-11 07:35] LABS: PLATELET ESTIMATE NORMAL
[2022-05-11] MEDS: PANTOPRAZOLE SODIUM 40 MG/VIAL IV SCH ×2 (09:13→20:46)
[2022-05-11] MEDS: INSULIN GLARGINE 100 UNITS/ML SUBCUT SCH ×2 (09:14→21:06)
[2022-05-11] MEDS: VANCOMYCIN 750MG PREMIX 150 ML IV SCH (15:40)
[2022-05-11] MEDS: TOTAL PARENTERAL NUTRITION 1,500 ML IV SCH (20:51)
[2022-05-12] VITALS (94 sets, daily range): BP systolic 87–160; BP diastolic 47–99
[2022-05-12] MEDS: BLOOD SUGAR DIAGNOSTIC STRIP TEST SCH ×4 (00:23→17:34)
[2022-05-12] MEDS: INSULIN LISPRO 100 UNITS/ML SUBCUT SCH ×4 (00:25→17:38)
[2022-05-12] MEDS: MEROPENEM 1,000 MG in SODIUM CHLORIDE 0.9% 100 ML IV SCH ×2 (02:14→14:27)
[2022-05-12] MEDS: PROPOFOL 10MG/ML 100ML 100 ML IV PRN (05:30)
[2022-05-12 06:10] LABS: HEMATOCRIT. 26.5 % (42.0-52.0); HEMOGLOBIN. 8.8 g/dL (14.0-18.0); MEAN CORPUSCULAR HEMOGLOBIN 27.7 pg (28.0-32.0); MEAN CORPUSCULAR VOLUME 83.7 fL (80.0-94.0); MEAN PLATELET VOLUME 7.6 fl (7.4-10.4); PHOSPHORUS 3.3 mg/dL (2.5-4.9); PLATELET 396 x1000/uL (130-400); RED BLOOD CELL COUNT 3.17 mill/uL (4.7-6.1); RED CELL DISTRIBUTION WIDTH 18.2 % (11.6-14.6)
[2022-05-12] MEDS: KCL 20MEQ/100ML PREMIX 100 ML IV SCH ×2 (08:56→12:22)
[2022-05-12] MEDS: PANTOPRAZOLE SODIUM 40 MG/VIAL IV SCH ×2 (08:56→20:49)
[2022-05-12] MEDS: INSULIN GLARGINE 100 UNITS/ML SUBCUT SCH ×2 (09:08→22:35)
[2022-05-12] MEDS ORDERED: FUROSEMIDE 40MG/4ML VIAL IVP NR (10:30)
[2022-05-12 12:50] LABS: PLATELET ESTIMATE NORMAL
[2022-05-12] MEDS: VANCOMYCIN 750MG PREMIX 150 ML IV SCH (14:27)
[2022-05-12] MEDS: FAT EMULSIONS 250 ML IV SCH (20:46)
[2022-05-12] MEDS: TOTAL PARENTERAL NUTRITION 1,500 ML IV SCH (20:47)
[2022-05-12] MEDS ORDERED: NOREPINEPHRINE 32 MG in DEXT 5% WATER 218 ML IV PRN (21:45)
[2022-05-13] VITALS (53 sets, daily range): BP systolic 88–157; BP diastolic 44–130
[2022-05-13] MEDS: INSULIN LISPRO 100 UNITS/ML SUBCUT SCH ×5 (00:49→23:36)
[2022-05-13] MEDS: MEROPENEM 1,000 MG in SODIUM CHLORIDE 0.9% 100 ML IV SCH ×2 (02:13→14:38)
[2022-05-13] MEDS: BLOOD SUGAR DIAGNOSTIC STRIP TEST SCH ×5 (06:00→23:37)
[2022-05-13 06:24] LABS: BASOPHILS % 1.3 % (0.0-2.0); HEMATOCRIT. 23.1 % (42.0-52.0); HEMOGLOBIN. 7.8 g/dL (14.0-18.0); LYMPHOCYTES % 7.8 % (20.0-50.0); MEAN CORPUSCULAR VOLUME 83.2 fL (80.0-94.0); MEAN PLATELET VOLUME 7.4 fl (7.4-10.4); MONOCYTES % 5.8 % (2.0-8.0); NEUTROPHILS % 76.1 % (40.0-76.0); PLATELET 376 x1000/uL (130-400); RED BLOOD CELL COUNT 2.78 mill/uL (4.7-6.1); RED CELL DISTRIBUTION WIDTH 18.6 % (11.6-14.6)
[2022-05-13 06:39] LABS: CHLORIDE 120 mEq/L (98-107)
[2022-05-13] MEDS: INSULIN GLARGINE 100 UNITS/ML SUBCUT SCH ×2 (10:00→21:13)
[2022-05-13] MEDS: PANTOPRAZOLE SODIUM 40 MG/VIAL IV SCH ×2 (10:44→21:11)
[2022-05-13] MEDS ORDERED: LORAZEPAM 2MG/ML CPJ IV PRN (14:45)
[2022-05-13] MEDS: TOTAL PARENTERAL NUTRITION 1,500 ML IV SCH (21:13)
[2022-05-13] MEDS ORDERED: POTASSIUM CHLORIDE INJ 40 MEQ in DEXT 5% WATER 250 ML IV ONE (23:30)
[2022-05-14] VITALS (23 sets, daily range): BP systolic 94–127; BP diastolic 51–63
[2022-05-14] MEDS: KCL 20MEQ/100ML X 2 FOR TOTAL KCL 40MEQ/200ML IV SCH ×4 (00:16→17:56)
[2022-05-14] MEDS: MEROPENEM 1,000 MG in SODIUM CHLORIDE 0.9% 100 ML IV SCH ×2 (02:06→14:00)
[2022-05-14] MEDS: BLOOD SUGAR DIAGNOSTIC STRIP TEST SCH ×3 (06:00→17:56)
[2022-05-14 06:13] LABS: EOSINOPHILS % 8.4 % (0.0-5.0); HEMATOCRIT. 21.8 % (42.0-52.0); HEMOGLOBIN. 7.1 g/dL (14.0-18.0); LYMPHOCYTES % 11.1 % (20.0-50.0); MEAN CORPUSCULAR VOLUME 82.8 fL (80.0-94.0); MEAN PLATELET VOLUME 7.2 fl (7.4-10.4); NEUTROPHILS % 73.5 % (40.0-76.0); PLATELET 333 x1000/uL (130-400); RED BLOOD CELL COUNT 2.63 mill/uL (4.7-6.1); RED CELL DISTRIBUTION WIDTH 18.6 % (11.6-14.6)
[2022-05-14 06:29] LABS: CHLORIDE 122 mEq/L (98-107)
[2022-05-14] MEDS: INSULIN LISPRO 100 UNITS/ML SUBCUT SCH ×2 (06:36→12:00)
[2022-05-14] MEDS: PANTOPRAZOLE SODIUM 40 MG/VIAL IV SCH ×2 (09:54→21:36)
[2022-05-14] MEDS: INSULIN GLARGINE 100 UNITS/ML SUBCUT SCH ×2 (10:00→22:00)
[2022-05-14] MEDS ORDERED: POTASSIUM CHLORIDE INJ 40 MEQ in DEXT 5% WATER 250 ML IV ONE (14:30)
[2022-05-14] MEDS: TOTAL PARENTERAL NUTRITION 1,500 ML IV SCH (21:30)
[2022-05-15] VITALS (35 sets, daily range): BP systolic 93–140; BP diastolic 48–69
[2022-05-15] MEDS: MEROPENEM 1,000 MG in SODIUM CHLORIDE 0.9% 100 ML IV SCH ×2 (02:00→14:24)
[2022-05-15] MEDS: MENTHOL/LANOLIN/CALAMINE/ZN OX OINT 71GM TOP PRN (05:49)
[2022-05-15] MEDS: BLOOD SUGAR DIAGNOSTIC STRIP TEST SCH ×4 (06:01→18:02)
[2022-05-15 06:17] LABS: CHLORIDE 129 mEq/L (98-107)
[2022-05-15] MEDS: PANTOPRAZOLE SODIUM 40 MG/VIAL IV SCH ×2 (09:00→21:00)
[2022-05-15] MEDS: INSULIN GLARGINE 100 UNITS/ML SUBCUT SCH ×2 (10:00→22:00)
[2022-05-15] MEDS ORDERED: TOTAL PARENTERAL NUTRITION 1,500 ML IV SCH (10:15)
[2022-05-15] MEDS: KCL 20MEQ/100ML PREMIX 100 ML IV SCH ×2 (11:41→14:25)
[2022-05-16] VITALS (53 sets, daily range): BP systolic 101–153; BP diastolic 50–78
[2022-05-16 05:56] LABS: CHLORIDE 125 mEq/L (98-107)
[2022-05-16] MEDS: BLOOD SUGAR DIAGNOSTIC STRIP TEST SCH ×5 (06:00→23:31)
[2022-05-16] MEDS: PANTOPRAZOLE SODIUM 40 MG/VIAL IV SCH ×2 (08:59→20:38)
[2022-05-16] MEDS: INSULIN GLARGINE 100 UNITS/ML SUBCUT SCH ×2 (10:10→22:00)
[2022-05-16 12:07] LABS: BASOPHILS % 1.1 % (0.0-2.0); EOSINOPHILS % 14.4 % (0.0-5.0); HEMATOCRIT. 23.5 % (42.0-52.0); HEMOGLOBIN. 7.5 g/dL (14.0-18.0); MEAN CORPUSCULAR HEMOGLOBIN 26.9 pg (28.0-32.0); MEAN CORPUSCULAR VOLUME 84.4 fL (80.0-94.0); MEAN PLATELET VOLUME 7.9 fl (7.4-10.4); MONOCYTES % 4.8 % (2.0-8.0); NEUTROPHILS % 67.7 % (40.0-76.0); PLATELET 284 x1000/uL (130-400); RED BLOOD CELL COUNT 2.78 mill/uL (4.7-6.1); RED CELL DISTRIBUTION WIDTH 19.2 % (11.6-14.6)
[2022-05-16] MEDS: TOTAL PARENTERAL NUTRITION 1,500 ML IV SCH ×2 (20:40→21:00)
[2022-05-17] VITALS (12 sets, daily range): BP systolic 124–158; BP diastolic 56–78
[2022-05-17] MEDS: BLOOD SUGAR DIAGNOSTIC STRIP TEST SCH ×3 (05:14→17:51)
[2022-05-17 07:07] LABS: INR 1.2
[2022-05-17 07:11] LABS: BASOPHILS % 0.8 % (0.0-2.0); EOSINOPHILS % 14.7 % (0.0-5.0); HEMATOCRIT. 24.2 % (42.0-52.0); HEMOGLOBIN. 7.8 g/dL (14.0-18.0); LYMPHOCYTES % 14.5 % (20.0-50.0); MEAN CORPUSCULAR HEMOGLOBIN 27.1 pg (28.0-32.0); MEAN CORPUSCULAR VOLUME 84.2 fL (80.0-94.0); MEAN PLATELET VOLUME 7.7 fl (7.4-10.4); MONOCYTES % 4.4 % (2.0-8.0); NEUTROPHILS % 65.6 % (40.0-76.0); PLATELET 253 x1000/uL (130-400); RED BLOOD CELL COUNT 2.87 mill/uL (4.7-6.1); RED CELL DISTRIBUTION WIDTH 19.5 % (11.6-14.6)
[2022-05-17 08:31] LABS: CHLORIDE 127 mEq/L (98-107)
[2022-05-17] MEDS: PANTOPRAZOLE SODIUM 40 MG/VIAL IV SCH ×2 (09:31→20:27)
[2022-05-17] MEDS: INSULIN GLARGINE 100 UNITS/ML SUBCUT SCH (09:31)
[2022-05-17] MEDS ORDERED: DIATR MEGLU/DIATRIZOATE SOLN 30ML PO NR ×2 (12:45→16:45)
[2022-05-17] MEDS ORDERED: DIATR MEGLU/DIATRIZOATE SOLN 120ML ONE (14:45)
[2022-05-17] MEDS: FAT EMULSIONS 250 ML IV SCH (20:19)
[2022-05-17] MEDS: TOTAL PARENTERAL NUTRITION 1,500 ML IV SCH (20:36)
[2022-05-18] VITALS (21 sets, daily range): BP systolic 79–161; BP diastolic 46–101
[2022-05-18] MEDS: BLOOD SUGAR DIAGNOSTIC STRIP TEST SCH ×4 (06:00→17:21)
[2022-05-18 07:52] LABS: INR 1.2; PROTHROMBIN TIME 12.8 sec (9.6-11.0)
[2022-05-18 08:11] LABS: HEMOGLOBIN. 7.3 g/dL (14.0-18.0); MEAN CORPUSCULAR HEMOGLOBIN 27.8 pg (28.0-32.0); MEAN CORPUSCULAR VOLUME 84.2 fL (80.0-94.0); PLATELET 221 x1000/uL (130-400); RED BLOOD CELL COUNT 2.62 mill/uL (4.7-6.1); RED CELL DISTRIBUTION WIDTH 19.6 % (11.6-14.6)
[2022-05-18 08:22] LABS: CHLORIDE 119 mEq/L (98-107)
[2022-05-18] MEDS ORDERED: POTASSIUM CHLORIDE INJ 40 MEQ in DEXT 5% WATER 250 ML IV ONE (08:45)
[2022-05-18] MEDS: PANTOPRAZOLE SODIUM 40 MG/VIAL IV SCH ×2 (10:27→22:16)
[2022-05-18] MEDS: KCL 20MEQ/100ML X 2 FOR TOTAL KCL 40MEQ/200ML IV SCH ×2 (10:28→15:51)
[2022-05-18] MEDS ORDERED: LIDOCAINE HCL 1% 10 MG/ML 10ML VIAL ONE (11:09)
[2022-05-18] MEDS ORDERED: IOHEXOL-300 50 ML BOTTLE IV ONE (11:10)
[2022-05-18] MEDS ORDERED: FENTANYL CITRATE/PF 50MCG/ML 2ML VIAL ONE (11:30)
[2022-05-18] MEDS ORDERED: LIDOCAINE HCL 2% JELLY 5ML ONE (11:37)
[2022-05-18 11:45] LABS: PLATELET ESTIMATE NORMAL
[2022-05-18] MEDS ORDERED: FENTANYL CITRATE/PF 50MCG/ML 2ML VIAL IV NR (13:00)
[2022-05-18] MEDS: TOTAL PARENTERAL NUTRITION 1,500 ML IV SCH (22:17)
[2022-05-19] VITALS (20 sets, daily range): BP systolic 106–141; BP diastolic 59–73
[2022-05-19] MEDS: BLOOD SUGAR DIAGNOSTIC STRIP TEST SCH ×4 (00:54→18:00)
[2022-05-19 06:41] LABS: BASOPHILS % 0.6 % (0.0-2.0); EOSINOPHILS % 11.2 % (0.0-5.0); HEMATOCRIT. 21.9 % (42.0-52.0); HEMOGLOBIN. 7.2 g/dL (14.0-18.0); LYMPHOCYTES % 15.3 % (20.0-50.0); MEAN CORPUSCULAR HEMOGLOBIN 27.7 pg (28.0-32.0); MEAN CORPUSCULAR VOLUME 84.2 fL (80.0-94.0); MEAN PLATELET VOLUME 8.2 fl (7.4-10.4); MONOCYTES % 4.6 % (2.0-8.0); NEUTROPHILS % 68.3 % (40.0-76.0); PLATELET 196 x1000/uL (130-400); RED CELL DISTRIBUTION WIDTH 19.8 % (11.6-14.6)
[2022-05-19 06:43] LABS: INR 1.2; PROTHROMBIN TIME 12.7 sec (9.6-11.0)
[2022-05-19 08:03] LABS: CHLORIDE 119 mEq/L (98-107)
[2022-05-19] MEDS: PANTOPRAZOLE SODIUM 40 MG/VIAL IV SCH ×2 (09:43→21:30)
[2022-05-19] MEDS ORDERED: FAT EMULSIONS 250 ML IV SCH (21:00)
[2022-05-19] MEDS: TOTAL PARENTERAL NUTRITION 1,500 ML IV SCH (21:00)
== END 2022-05-19 21:58 | DRG 3 ==
LOC: ER 08:55 → EDBEDREQSVC 11:00 → MICUSO 11:47 → EDBEDREQ 11:54 → EDBEDREQTM 11:54 → ENRESERV 14:21 → CVICU 04-20 20:30 → 7WST 04-23 23:30 → CVICU 04-28 20:25 → 5EST 05-16 23:04
PROVIDERS: ADMIT Internal Medicine; ATTEND Internal Medicine
PROC: 0D1B0Z4 Bypass Ileum to Cutaneous, Open Approach (ICD-10-PCS; 2022-04-09)
PROC: 5A1955Z Respiratory Ventilation, Greater than 96 Consecutive Hours (ICD-10-PCS; 2022-04-09)
PROC: 0DTE0ZZ Resection of Large Intestine, Open Approach (ICD-10-PCS; 2022-04-09)
PROC: 0TQB0ZZ Repair Bladder, Open Approach (ICD-10-PCS; 2022-04-09)
PROC: 0BH17EZ Insertion of Endotracheal Airway into Trachea, Via Natural or Artificial Opening (ICD-10-PCS; 2022-04-09)
PROC: 30233N1 Transfusion of Nonautologous Red Blood Cells into Peripheral Vein, Percutaneous Approach (ICD-10-PCS; 2022-04-09)
PROC: 06HY33Z Insertion of Infusion Device into Lower Vein, Percutaneous Approach (ICD-10-PCS; 2022-04-09)
PROC: B54BZZA Ultrasonography of Right Lower Extremity Veins, Guidance (ICD-10-PCS; 2022-04-09)
PROC: 02HV33Z Insertion of Infusion Device into Superior Vena Cava, Percutaneous Approach (ICD-10-PCS; 2022-04-10)
PROC: B548ZZA Ultrasonography of Superior Vena Cava, Guidance (ICD-10-PCS; 2022-04-10)
PROC: 30233R1 Transfusion of Nonautologous Platelets into Peripheral Vein, Percutaneous Approach (ICD-10-PCS; 2022-04-12)
PROC: 02HV33Z Insertion of Infusion Device into Superior Vena Cava, Percutaneous Approach (ICD-10-PCS; 2022-04-17)
PROC: B548ZZA Ultrasonography of Superior Vena Cava, Guidance (ICD-10-PCS; 2022-04-17)
PROC: 5A1D70Z Performance of Urinary Filtration, Intermittent, Less than 6 Hours Per Day (ICD-10-PCS; 2022-04-17)
PROC: 5A1D70Z Performance of Urinary Filtration, Intermittent, Less than 6 Hours Per Day (ICD-10-PCS; 2022-04-19)
PROC: 5A1D70Z Performance of Urinary Filtration, Intermittent, Less than 6 Hours Per Day (ICD-10-PCS; 2022-04-21)
PROC: 5A1D70Z Performance of Urinary Filtration, Intermittent, Less than 6 Hours Per Day (ICD-10-PCS; 2022-04-23)
PROC: 02HV33Z Insertion of Infusion Device into Superior Vena Cava, Percutaneous Approach (ICD-10-PCS; 2022-05-01)
PROC: B548ZZA Ultrasonography of Superior Vena Cava, Guidance (ICD-10-PCS; 2022-05-01)
PROC: 5A1D70Z Performance of Urinary Filtration, Intermittent, Less than 6 Hours Per Day (ICD-10-PCS; 2022-05-01)
PROC: 5A1D70Z Performance of Urinary Filtration, Intermittent, Less than 6 Hours Per Day (ICD-10-PCS; 2022-05-03)
PROC: 0W9B3ZZ Drainage of Left Pleural Cavity, Percutaneous Approach (ICD-10-PCS; 2022-05-06)
PROC: 0B110F4 Bypass Trachea to Cutaneous with Tracheostomy Device, Open Approach (ICD-10-PCS; principal; 2022-05-10)
PROC: 0DH63UZ Insertion of Feeding Device into Stomach, Percutaneous Approach (ICD-10-PCS; 2022-05-18)
DX: A41.51 Sepsis due to Escherichia coli [E. coli] (principal); E43 Unspecified severe protein-calorie malnutrition; J15.1 Pneumonia due to Pseudomonas; K63.1 Perforation of intestine (nontraumatic); R65.21 Severe sepsis with septic shock; K65.9 Peritonitis, unspecified; N17.0 Acute kidney failure with tubular necrosis; G92.8 Other toxic encephalopathy; I63.9 Cerebral infarction, unspecified; J96.00 Acute respiratory failure, unspecified whether with hypoxia or hypercapnia; C18.9 Malignant neoplasm of colon, unspecified; E87.1 Hypo-osmolality and hyponatremia; C16.9 Malignant neoplasm of stomach, unspecified; K92.1 Melena; N39.0 Urinary tract infection, site not specified; D61.818 Other pancytopenia; R18.8 Other ascites; J90 Pleural effusion, not elsewhere classified; E87.0 Hyperosmolality and hypernatremia; E87.29 Other acidosis; K55.9 Vascular disorder of intestine, unspecified; Z20.822 Contact with and (suspected) exposure to COVID-19; K66.8 Other specified disorders of peritoneum; I10 Essential (primary) hypertension; E11.9 Type 2 diabetes mellitus without complications; D69.6 Thrombocytopenia, unspecified; N28.1 Cyst of kidney, acquired; E87.6 Hypokalemia; E78.5 Hyperlipidemia, unspecified; R74.01 Elevation of levels of liver transaminase levels; Z92.3 Personal history of irradiation; D63.0 Anemia in neoplastic disease; R13.10 Dysphagia, unspecified; K80.20 Calculus of gallbladder without cholecystitis without obstruction; E87.5 Hyperkalemia; E88.09 Other disorders of plasma-protein metabolism, not elsewhere classified; Z85.038 Personal history of other malignant neoplasm of large intestine; Z79.899 Other long term (current) drug therapy; Z79.84 Long term (current) use of oral hypoglycemic drugs
CPT/HCPCS: 32555; 36415; 36556; 36573; 36598; 36600; 49450; 70551; 71045; 74018; 74176; 76700; 76937; 80048; 80053; 80076; 80202; 81003; 82040; 82140; 82248; 82375; 82550; 82607; 82805; 82962; 83036; 83605; 83615; 83735; 83880; 84100; 84134; 84145; 84300; 84443; 84478; 84484; 85014; 85018; 85025; 85044; 86705; 86709; 86803; 86850; 86900; 86920; 86945; 87070; 87077; 87106; 87186; 87340; 87426; 88108; 88307; 90935; 92610; 93005; 93306; 93970; 94002; 94003; 94640; 95816; 97162; 97166; 97530; 99152; 99153; 99291; A6261; C1725; C1752; C1769; C1892; C9113; C9803; J0278; J0330; J0610; J0690; J0885; J1160; J1450; J1815; J1940; J1956; J2060; J2185; J2248; J2250; J2270; J2370; J2405; J2543; J2704; J3010; J3370; J3411; J3475; J3480; J3490; J7030; J7050; J7060; J7070; L8514; P9016; P9034; P9041; Q9963; Q9967; Q9968; A4315; G0500